=== PATIENT | male | born 1930 | race Caucasian/White ===

== ENCOUNTER 2020-06-08 11:35 | Inpatient (IN) ==
--- NOTE | 2020-06-08 13:13 | Emergency Department Note ---
History of Present Illness General Chief complaint: Fall Time Seen by Provider: 06/08/20 12:58 History of Present Illness This is an 89-year-old male that presents to the emergency department via ambulance with complaints of "fall". Per EMS, patient resides at [facility]. Since Friday per staff at [facility] the patient has had a decline in health. Increased confusion, decreased eating and drinking has been noted as well as difficulty with ambulation. Today they note that the staff found the patient on the floor. They do note abrasions to the right shoulder, left lobo, right hip and top of head. Patient presently denies any chest pain or shortness of breath. Patient is aware that he is at [facility] and knows his date of and is able to spell his last name but does not know today's date. Van jackson denies any other complaints. He believes that he brought his here. Additional history was obtained from KLAUS Singh at [facility]. She notes that the patient on Friday was found to be holding himself up by a railing in the bathroom as it was believed that he almost fell. This happened x2. Did believe that he was trying to hold onto rail for about 15 to 20 minutes when he was found. Following day, patient was on the floor and notes that he was trying to put on his pants and fell. Since that time there has been decreased cognitive status, decreased ability to ambulate with his walker, decreased amount of p.o. intake and overall feeling weak. He developed a fever on Friday @ 101.3 F via the ear. Temperature yesterday was 100.8 F. Covid testing pending & Urine test pending from [facility]. They note that this is very unusual for him as he normally is quite well at baseline. Additional history was obtained by his daughter, Tim. I spoke with her via phone. They note that the patient has not signed a DNR and at this point believes that they would like everything done/patient would like everything done to try to keep him alive. She verified history obtained by [facility] and notes that he seemed quite fine this past Friday but seems to have quite the decline since that time. Home Medications Medication Instructions Recorded Confirmed Type celecoxib 100 mg capsule 100 mg PO QAM cap 03/09/19 06/08/20 History cholecalciferol (vitamin D3) 10 400 units PO QAM tab 04/26/19 06/08/20 History mcg (400 unit) tablet oxycodone-acetaminophen 5 mg-325 1 tab PO Q4H PRN #120 tab 05/17/20 06/08/20 Rx mg tablet gabapentin 100 mg PO TID 06/08/20 06/08/20 History Allergies Allergy/AdvReac Type Severity Reaction Status Date / Time bacitracin Allergy Mild RASH Verified 06/08/20 13:56 neomycin Allergy Mild RASH Verified 06/08/20 13:56 polymyxin B Allergy Mild RASH Verified 06/08/20 13:56 procaine Allergy Unknown started Verified 06/08/20 13:56 shaking after dose of novocain for hemorrhoidectomy Past Med/Surg History Medical History Allergic rhinitis Hyperglycemia Malignant melanoma of skin Nontoxic multinodular goiter Peripheral neuropathy Spinal stenosis Social History Smoking Status: Unknown if ever smoked Hx Alcohol Use: No Hx Substance Use: No Preferred Language: Lithuanian Communication Ability: Impaired Communication Ability Comment: hx of dementia Beliefs That Will Affect Care: None Current Living Situation: Correction Feels Safe at Home: Yes Safety Concerns: Feels Safe At This Time Assistive Devices: Oxygen - Continuous Review of Systems A total of 10 systems reviewed and were otherwise negative Physical Exam Vital Signs Vital Signs - 24 hr 06/08/20 11:40 06/08/20 11:57 06/08/20 12:00 Temperature Temperature Source Pulse Rate 114 H 93 H 90 Pulse Rate [Apical] Pulse Rate from SpO2 Sensor 97 H 93 H 93 H Respiratory Rate 15 19 16 Respiratory Effort / Characteristics Respiratory Depth Respiratory Pattern Blood Pressure 133/79 132/71 Blood Pressure [Right Arm] Blood Pressure Mean 83 90 Blood Pressure Mean [Right Arm] Pulse Oximetry 96 93 Oxygen Delivery Method Oxygen Flow Rate Sepsis Recent Fever Within 48 Hours Sepsis New/Unexplained Change in Mental Status Sepsis Action Taken by Nursing 06/08/20 12:02 06/08/20 12:30 06/08/20 13:00 Temperature 37.3 C Temperature Source Rectal Pulse Rate 93 H 96 H 81 Pulse Rate [Apical] 93 H Pulse Rate from SpO2 Sensor 96 H Respiratory Rate 20 20 15 Respiratory Effort / Characteristics Non-Labored Spontaneous Respiratory Depth Normal Respiratory Pattern Regular Blood Pressure 133/79 130/75 133/95 Blood Pressure [Right Arm] 133/79 Blood Pressure Mean 97 83 110 Blood Pressure Mean [Right Arm] 97 Pulse Oximetry 94 96 Oxygen Delivery Method Room Air Oxygen Flow Rate Sepsis Recent Fever Within 48 Hours No Sepsis New/Unexplained Change in Mental Status Yes Sepsis Action Taken by Nursing No Action Required 06/08/20 13:30 06/08/20 14:00 06/08/20 15:22 Temperature Temperature Source Pulse Rate 88 106 H Pulse Rate [Apical] Pulse Rate from SpO2 Sensor 109 H Respiratory Rate 20 22 Respiratory Effort / Characteristics Respiratory Depth Respiratory Pattern Blood Pressure 134/72 136/89 Blood Pressure [Right Arm] Blood Pressure Mean 108 107 Blood Pressure Mean [Right Arm] Pulse Oximetry 94 90 Oxygen Delivery Method Room Air Oxygen Flow Rate Sepsis Recent Fever Within 48 Hours Sepsis New/Unexplained Change in Mental Status Sepsis Action Taken by Nursing 06/08/20 15:34 06/08/20 17:00 Temperature Temperature Source Pulse Rate 109 H Pulse Rate [Apical] 90 Pulse Rate from SpO2 Sensor Respiratory Rate 18 18 Respiratory Effort / Characteristics Respiratory Depth Respiratory Pattern Blood Pressure 176/102 H Blood Pressure [Right Arm] 138/96 Blood Pressure Mean 153 Blood Pressure Mean [Right Arm] 110 Pulse Oximetry 95 100 Oxygen Delivery Method Nasal Cannula Room Air Oxygen Flow Rate 2 Sepsis Recent Fever Within 48 Hours Sepsis New/Unexplained Change in Mental Status Sepsis Action Taken by Nursing VITAL SIGNS - Vital signs and nursing notes were reviewed. Stable and afebrile. GENERAL -89-year-old male appearing his stated age who is in no acute distress. Communicates well with provider and answers questions appropriately. Patient appears overall mildly dehydrated. SKIN -there is evidence of mild contusion formation to the right anterior shoulder without break in the integument or deformity. HEAD - NC/AT. EYES - PERRL with EOMI bilaterally. Sclera anicteric. EARS - No deformities of external structures noted on gross examination bilaterally. NOSE - Midline and without cyanosis. No epistaxis or purulent drainage noted. Septum midline without deviation or septal hematoma noted. MOUTH/OROPHARYNX - Without perioral cyanosis. Buccal mucosa pink and moist and without leukoplakia. Tongue midline with equal elevation of palate bilaterally. No tonsillar hypertrophy, erythema, or exudates noted. Fair dentition noted. Oral mucosa appears somewhat dry. NECK - Neck with FROM. No nuchal rigidity. LUNGS - Chest wall symmetric without accessory muscle use, intercostals retractions, or central cyanosis. Normal vesicular breath sounds CTA B/L. No wheezes, rales, or rhonchi appreciated. CARDIAC -irregular RRR with S1/S2. No loud murmur, rubs, or gallops appreciated. ABDOMEN - Abdominal contour normal without pulsations or visible masses. BS normoactive all four quadrants. No tenderness, palpable masses, hepato splenomegaly, or ascites noted. EXTREMITIES - No clubbing or peripheral cyanosis. No pretibial edema present. +5/5 strength noted in UE/LE bilaterally. NEUROLOGIC - Cranial nerves II through XII grossly intact. PSYCH - A&Ox2 and cooperates fully with examiner. He is alert and oriented to person, place but not time. Pt is very pleasant and interacts well with examiner. Course Administered Medications Ceftriaxone Sodium 1,000 mg/ (Dextrose) 50 mls @ 100 mls/hr IV DAILY@1400 [facility] Stop: 06/15/20 14:29 Last Infusion: 06/10/20 13:34 Dose: 0 mls/hr Documented by: [id number] Admin: 06/10/20 12:58 Dose: 100 mls/hr Documented by: [id number] Sodium Chloride (Nss 1000ml) 1,000 mls @ 80 mls/hr IV .[id number] [facility] Stop: 07/09/20 14:14 Last Admin: 06/10/20 15:06 Dose: 80 mls/hr Documented by: [id number] Infusion: 06/10/20 15:06 Dose: 80 mls/hr Documented by: [id number] Admin: 06/10/20 02:40 Dose: 80 mls/hr Documented by: [id number] Infusion: 06/10/20 02:38 Dose: 80 mls/hr Documented by: [id number] Infusion: 06/09/20 20:50 Dose: 80 mls/hr Documented by: [id number] Admin: 06/09/20 14:07 Dose: 80 mls/hr Documented by: [id number] Heparin Sodium/Dextrose (Heparin Sodium/Dextrose) 25,000 units in 500 mls @ 0 mls/hr IV .Q0M [facility]; Protocol Stop: 07/09/20 21:14 Last Titration: 06/10/20 19:07 Dose: 400 units/hr, 8 mls/hr Documented by: [id number] Cosigned by: [id number] Admin: 06/10/20 14:30 Dose: 400 units/hr, 8 mls/hr Documented by: [id number] Cosigned by: [id number] Admin: 06/09/20 21:43 Dose: Not Given Documented by: [id number] Fluconazole (Diflucan) 100 mg in 50 mls @ 100 mls/hr IV Q24H [facility]; Protocol Stop: 06/20/20 16:59 Last Infusion: 06/10/20 18:36 Dose: 0 mls/hr Documented by: [id number] Admin: 06/10/20 17:22 Dose: 100 mls/hr Documented by: [id number] Metoprolol Tartrate (Metoprolol Tartrate 1 Mg/Ml Vial) 5 mg IV Q4 [facility] Stop: 07/10/20 19:59 Last Admin: 06/10/20 23:13 Dose: 5 mg Documented by: [id number] Admin: 06/10/20 19:49 Dose: 5 mg Documented by: [id number] Nystatin (Nystatin Susp 500,000 U/5 Ml Udc) 5 ml PO QID [facility] Stop: 06/20/20 12:59 Last Admin: 06/10/20 21:00 Dose: 5 ml Documented by: [id number] Admin: 06/10/20 17:22 Dose: 5 ml Documented by: [id number] Admin: 06/10/20 12:58 Dose: 5 ml Documented by: [id number] Sodium Chloride (Sodium Chloride 0.9% 10ml Flush) 30 ml IV Q24H [facility] Stop: 06/12/20 21:01 Last Admin: 06/10/20 21:20 Dose: 30 ml Documented by: [id number] Admin: 06/09/20 20:50 Dose: 30 ml Documented by: [id number] Admin: 06/08/20 21:40 Dose: 30 ml Documented by: [id number] Discontinued Medications Apixaban (Apixaban 5 Mg Tablet) 5 mg PO BID [facility] Stop: 07/09/20 20:59 Last Admin: 06/09/20 20:49 Dose: Not Given Documented by: [id number] Dexamethasone (Dexamethasone Sod Inj 4 Mg/Ml Vial) 6 mg IV NOW STA Stop: 06/08/20 17:18 Last Admin: 06/08/20 18:45 Dose: 6 mg Documented by: [id number] Gabapentin (Gabapentin 100 Mg Cap) 100 mg PO TID@0600,1200,2000 [facility] Stop: 07/08/20 21:29 Last Admin: 06/09/20 21:18 Dose: Not Given Documented by: [id number] Admin: 06/09/20 12:12 Dose: 100 mg Documented by: [id number] Admin: 06/09/20 05:49 Dose: 100 mg Documented by: [id number] Admin: 06/08/20 22:59 Dose: Not Given Documented by: [id number] Heparin Sodium/Dextrose (Heparin Iv Standard *No* Bolus) 1 ea IV Q30M [facility]; Protocol Stop: 07/08/20 18:10 Last Admin: 06/09/20 00:44 Dose: Not Given Documented by: [id number] Heparin Sodium/Dextrose (Heparin 31185 Unit/500 Ml D5w) Confirm Administered Dose 25,000 units IV .STK-MED ONE Stop: 06/08/20 19:17 Last Admin: 06/08/20 20:29 Dose: Not Given Documented by: [id number] Heparin Sodium/Dextrose (Heparin Iv Standard *No* Bolus) 1 ea IV Q15M [facility]; Protocol Stop: 06/09/20 22:31 Last Admin: 06/10/20 07:12 Dose: Not Given Documented by: [id number] Admin: 06/10/20 07:12 Dose: Not Given Documented by: [id number] Sodium Chloride (Nss 1000ml) 1,000 mls @ 125 mls/hr IV .Q8H [facility] Stop: 07/08/20 13:14 Last Admin: 06/09/20 13:49 Dose: Not Given Documented by: [id number] Infusion: 06/09/20 13:49 Dose: 0 mls/hr Documented by: [id number] Admin: 06/09/20 05:49 Dose: 125 mls/hr Documented by: [id number] Infusion: 06/09/20 05:49 Dose: 125 mls/hr Documented by: [id number] Admin: 06/08/20 22:59 Dose: 125 mls/hr Documented by: [id number] Infusion: 06/08/20 21:40 Dose: 125 mls/hr Documented by: [id number] Admin: 06/08/20 13:40 Dose: 125 mls/hr Documented by: [id number] Remdesivir 200 mg/ Sodium (Chloride) 250 mls @ 125 mls/hr IV TODAY@1800 [facility]; Protocol Stop: 06/08/20 19:59 Last Infusion: 06/09/20 00:35 Dose: 0 mls/hr Documented by: [id number] Admin: 06/08/20 18:45 Dose: 125 mls/hr Documented by: [id number] Heparin Sodium/Dextrose (Heparin Sodium/Dextrose) 25,000 units in 500 mls @ 0 mls/hr IV .Q0M [facility]; Protocol Stop: 06/09/20 21:00 Last Titration: 06/10/20 15:15 Dose: 0 units/hr, 0 mls/hr Documented by: [id number] Cosigned by: [id number] Titration: 06/10/20 13:30 Dose: 0 units/hr, 0 mls/hr Documented by: [id number] Cosigned by: [id number] Titration: 06/10/20 07:06 Dose: 550 units/hr, 11 mls/hr Documented by: [id number] Cosigned by: [id number] Admin: 06/10/20 05:54 Dose: 550 units/hr, 11 mls/hr Documented by: [id number] Cosigned by: [id number] Titration: 06/10/20 05:54 Dose: 550 units/hr, 11 mls/hr Documented by: [id number] Cosigned by: [id number] Titration: 06/10/20 05:53 Dose: 550 units/hr, 11 mls/hr Documented by: [id number] Cosigned by: [id number] Titration: 06/10/20 05:06 Dose: 0 units/hr, 0 mls/hr Documented by: [id number] Cosigned by: [id number] Titration: 06/09/20 22:41 Dose: 700 units/hr, 14 mls/hr Documented by: [id number] Cosigned by: [id number] Titration: 06/09/20 21:41 Dose: 0 units/hr, 0 mls/hr Documented by: [id number] Cosigned by: [id number] Titration: 06/09/20 19:14 Dose: 0 units/hr, 0 mls/hr Documented by: [id number] Cosigned by: [id number] Titration: 06/09/20 11:14 Dose: 850 units/hr, 17 mls/hr Documented by: [id number] Cosigned by: [id number] Titration: 06/09/20 06:56 Dose: 0 units/hr, 0 mls/hr Documented by: [id number] Cosigned by: [id number] Titration: 06/09/20 00:35 Dose: 1,200 units/hr, 24 mls/hr Documented by: [id number] Cosigned by: [id number] Admin: 06/08/20 19:48 Dose: 1,200 units/hr, 24 mls/hr Documented by: [id number] Cosigned by: [id number] Dexamethasone Sodium Phosphate (6 mg/ Syringe) 1.5 mls @ 1 mls/min IV DAILY [facility] Stop: 06/17/20 09:02 Last Admin: 06/09/20 09:53 Dose: 1 mls/min Documented by: [id number] Ioversol (Optiray 320 125ml) 120 ml IV ONCE ONE Stop: 06/08/20 14:46 Last Admin: 06/08/20 14:45 Dose: 120 ml Documented by: [id number] Metoprolol Tartrate (Metoprolol Tartrate 25 Mg Tab) 25 mg PO TID [facility] Stop: 07/09/20 13:59 Last Admin: 06/10/20 09:51 Dose: 25 mg Documented by: [id number] Admin: 06/09/20 20:49 Dose: Not Given Documented by: [id number] Admin: 06/09/20 14:42 Dose: 25 mg Documented by: [id number] Metoprolol Tartrate (Metoprolol Tartrate 1 Mg/Ml Vial) 5 mg IV Q6 [facility] Stop: 07/10/20 11:59 Last Admin: 06/10/20 12:59 Dose: 5 mg Documented by: [id number] Miscellaneous (Stop Order) 1 ea N/A ONE ONE Stop: 06/09/20 21:01 Last Admin: 06/09/20 21:42 Dose: Not Given Documented by: [id number] Sodium Chloride (Sodium Chloride 0.9% 10ml Flush) 30 ml IV TODAY@1800 [facility] Stop: 06/08/20 18:01 Last Admin: 06/08/20 21:46 Dose: 30 ml Documented by: [id number] Vitamin D (Cholecalciferol 400 Units 10 Mcg Tab) 400 units PO QAM [facility] Stop: 07/09/20 08:59 Last Admin: 06/09/20 09:53 Dose: 400 units Documented by: [id number] Medical Decision Making Laboratory Data Result diagrams: 06/10/20 12:42 06/10/20 12:42 Lab Results 06/08/20 06/08/20 06/08/20 Range/Units 11:55 11:55 11:55 WBC 10.54 (4.8-10.8) K/uL RBC 4.19 L (4.7-6.1) M/uL Hgb 13.2 L (14.0-18.0) g/dL Hct 39.3 L (42-52) % MCV 93.8 (80-100) fL MCH 31.5 (25-34) pg MCHC 33.6 (32-36) g/dL RDW Std Deviation 47.9 H (36.4-46.3) fL RDW Coeff of Alvarez 13.9 (11.5-14.5) % Plt Count 250 (130-400) K/uL MPV 11.3 H (7.4-10.4) fL Immature Gran % (Auto) 0.3 % Neut % (Auto) 90.2 % Lymph % (Auto) 3.1 % Tillman % (Auto) 6.4 % Eos % (Auto) 0.0 % Baso % (Auto) 0.0 % Neut # (Auto) 9.51 H (1.4-6.5) K/uL Lymph # (Auto) 0.33 L (1.2-3.4) K/uL Tillman # (Auto) 0.67 H (0.11-0.59) K/uL Eos # (Auto) 0.00 (0-0.5) K/uL Baso # (Auto) 0.00 (0-0.2) K/uL Immature Gran # (Auto) 0.03 H (0.00-0.02) K/uL D-Dimer (0-500) ug/L FEU Sodium 139 (136-145) mmol/L Potassium 3.8 (3.5-5.1) mmol/L Chloride 105 (98-107) mmol/L Carbon Dioxide 25 (21-32) mmol/L Anion Gap 9.0 (3-11) BUN 30 H (7-18) mg/dl Creatinine 1.14 (0.6-1.4) mg/dl Est Cr Clr Drug Dosing 41.1 ml/min Est GFR ( Amer) 65.7 Est GFR (Non-Af Amer) 56.7 BUN/Creatinine Ratio 26.7 H (10-20) Glucose 190 H (70-99) mg/dl Calcium 9.1 (8.5-10.1) mg/dl Magnesium 1.9 (1.8-2.4) mg/dl Total Bilirubin 0.6 (0.2-1) mg/dl AST 151 H (15-37) U/L ALT 74 (12-78) U/L Alkaline Phosphatase 83 (45-117) U/L Lactate Dehydrogenase (87-241) U/L Total Creatine Kinase 1218 H (39-308) U/L Troponin I 1.740 H* (0-0.045) ng/ml C-Reactive Protein (0-0.29) mg/dl Total Protein 7.5 (6.4-8.2) gm/dl Albumin 3.1 L (3.4-5.0) gm/dl Globulin 4.4 H (2.5-4.0) gm/dl Albumin/Globulin Ratio 0.7 L (0.9-2) Procalcitonin 0.11 (0-0.5) ng/ml COVID-19 Eval Order SARS-CoV-2, RNA, NAAT (NEGATIVE) Blood Type Antibody Screen 06/08/20 06/08/20 06/08/20 Range/Units 13:35 13:35 16:25 WBC (4.8-10.8) K/uL RBC (4.7-6.1) M/uL Hgb (14.0-18.0) g/dL Hct (42-52) % MCV (80-100) fL MCH (25-34) pg MCHC (32-36) g/dL RDW Std Deviation (36.4-46.3) fL RDW Coeff of Alvarez (11.5-14.5) % Plt Count (130-400) K/uL MPV (7.4-10.4) fL Immature Gran % (Auto) % Neut % (Auto) % Lymph % (Auto) % Tillman % (Auto) % Eos % (Auto) % Baso % (Auto) % Neut # (Auto) (1.4-6.5) K/uL Lymph # (Auto) (1.2-3.4) K/uL Tillman # (Auto) (0.11-0.59) K/uL Eos # (Auto) (0-0.5) K/uL Baso # (Auto) (0-0.2) K/uL Immature Gran # (Auto) (0.00-0.02) K/uL D-Dimer (0-500) ug/L FEU Sodium (136-145) mmol/L Potassium (3.5-5.1) mmol/L Chloride (98-107) mmol/L Carbon Dioxide (21-32) mmol/L Anion Gap (3-11) BUN (7-18) mg/dl Creatinine (0.6-1.4) mg/dl Est Cr Clr Drug Dosing ml/min Est GFR ( Amer) Est GFR (Non-Af Amer) BUN/Creatinine Ratio (10-20) Glucose (70-99) mg/dl Calcium (8.5-10.1) mg/dl Magnesium (1.8-2.4) mg/dl Total Bilirubin (0.2-1) mg/dl AST (15-37) U/L ALT (12-78) U/L Alkaline Phosphatase (45-117) U/L Lactate Dehydrogenase (87-241) U/L Total Creatine Kinase (39-308) U/L Troponin I (0-0.045) ng/ml C-Reactive Protein (0-0.29) mg/dl Total Protein (6.4-8.2) gm/dl Albumin (3.4-5.0) gm/dl Globulin (2.5-4.0) gm/dl Albumin/Globulin Ratio (0.9-2) Procalcitonin (0-0.5) ng/ml COVID-19 Eval Order Covid19 [facility] SARS-CoV-2, RNA, NAAT POSITIVE A* (NEGATIVE) Blood Type A Negative Antibody Screen NEGATIVE 06/08/20 06/08/20 06/08/20 Range/Units 16:25 16:25 16:25 WBC (4.8-10.8) K/uL RBC (4.7-6.1) M/uL Hgb (14.0-18.0) g/dL Hct (42-52) % MCV (80-100) fL MCH (25-34) pg MCHC (32-36) g/dL RDW Std Deviation (36.4-46.3) fL RDW Coeff of Alvarez (11.5-14.5) % Plt Count (130-400) K/uL MPV (7.4-10.4) fL Immature Gran % (Auto) % Neut % (Auto) % Lymph % (Auto) % Tillman % (Auto) % Eos % (Auto) % Baso % (Auto) % Neut # (Auto) (1.4-6.5) K/uL Lymph # (Auto) (1.2-3.4) K/uL Tillman # (Auto) (0.11-0.59) K/uL Eos # (Auto) (0-0.5) K/uL Baso # (Auto) (0-0.2) K/uL Immature Gran # (Auto) (0.00-0.02) K/uL D-Dimer 970 H* (0-500) ug/L FEU Sodium (136-145) mmol/L Potassium (3.5-5.1) mmol/L Chloride (98-107) mmol/L Carbon Dioxide (21-32) mmol/L Anion Gap (3-11) BUN (7-18) mg/dl Creatinine (0.6-1.4) mg/dl Est Cr Clr Drug Dosing ml/min Est GFR ( Amer) Est GFR (Non-Af Amer) BUN/Creatinine Ratio (10-20) Glucose (70-99) mg/dl Calcium (8.5-10.1) mg/dl Magnesium (1.8-2.4) mg/dl Total Bilirubin (0.2-1) mg/dl AST (15-37) U/L ALT (12-78) U/L Alkaline Phosphatase (45-117) U/L Lactate Dehydrogenase 388 H (87-241) U/L Total Creatine Kinase (39-308) U/L Troponin I (0-0.045) ng/ml C-Reactive Protein 5.93 H (0-0.29) mg/dl Total Protein (6.4-8.2) gm/dl Albumin (3.4-5.0) gm/dl Globulin (2.5-4.0) gm/dl Albumin/Globulin Ratio (0.9-2) Procalcitonin (0-0.5) ng/ml COVID-19 Eval Order SARS-CoV-2, RNA, NAAT (NEGATIVE) Blood Type Antibody Screen Imaging Data Radiologist's Impression: XR chest 1V portable HISTORY: 89 years-old Male weakness acute weakness COMPARISON: None TECHNIQUE: Portable AP view of the chest FINDINGS: Cardiac silhouette is mildly enlarged. Calcified plaque of the thoracic aorta. There is no pneumothorax, pleural effusion or overt pulmonary edema. Hyperinflated lungs with possible emphysema. Subtle ill-defined bibasilar opacities. Degenerative changes of the shoulders and spine. IMPRESSION: Subtle ill-defined bibasilar opacities are suspicious for pneumonitis. ACT 112: Negative or not required by law. The above report was generated using voice recognition software. It may contain grammatical, syntax or spelling errors. Electronically signed by: Fabiano Ramírez M.D. 06/08/2020 2:[address] head/brain wo con CLINICAL HISTORY: 89 years-old Male with ?fall, increased confusion. Acute head injury status post fall TECHNIQUE: Multiple axial CT images of the head were obtained without contrast. A dose lowering technique was utilized adhering to the principles of ALARA. COMPARISON: CT cervical spine of same day FINDINGS: No acute intracranial hemorrhage, midline shift, intracranial mass, hydrocephalus, territorial ischemia or abnormal extra-axial collection. Age- related involutional changes with vacuum ventriculomegaly. Patchy white matter hypodensities suggest chronic microvascular ischemic disease. Cerebral vascular calcifications. The calvarium is intact. Orbits appear unremarkable. Streak artifact from dental amalgam hardware. The paranasal sinuses, mastoid air cells, and middle ear cavities are clear. IMPRESSION: No acute intracranial abnormality or calvarial fracture. ACT 112: Negative or not required by law. The above report was generated using voice recognition software. It may contain grammatical, syntax or spelling errors. Electronically signed by: Fabiano Ramírez M.D. 06/08/2020 2:[address] DOSE: HISTORY: ?fall, increased confusion TECHNIQUE: Multiaxial CT images of the cervical spine were performed and reformatted in the sagittal and coronal plane without the use of contrast. A dose lowering technique was utilized adhering to the principles of ALARA. COMPARISON: None. FINDINGS: No fractures. No subluxation. Prevertebral soft tissues and the C1-C2 interval are intact. No pneumothorax. Mild disc space narrowing at C5-C6. There are fused anterior osteophytes from C6 through the upper thoracic spine. Large anterior osteophytes seen throughout the cervical spine. Moderate to severe fa cet degenerative changes throughout the cervical spine most pronounced on the left. There is moderate to severe central canal narrowing at the C1-C2 level due to soft tissue prominence posterior to the odontoid. The central canal at this level measures approximately 6 mm in diameter. IMPRESSION: 1. No fractures within the cervical spine. 2. Degenerative changes as described above. 3. Moderate to severe central canal narrowing at the C1-C2 level due to soft tissue prominence posterior to the odontoid. This is likely chronic. ACT 112: Negative or not required by law. Electronically signed by: Garcia Jeong M.D. 06/08/2020 2:[address] ANGIOGRAPHY OF THE CHEST, PULMONARY EMBOLUS PROTOCOL CLINICAL HISTORY: Troponin elevation, fever, ams, falls COMPARISON STUDY: Chest radiograph performed earlier today. TECHNIQUE: Following IV administration of 120 mL of Optiray-320, helical axial images of the chest were obtained utilizing the pulmonary embolus protocol. Maximal intensity projections and sagittal and coronal reformats were viewed on an independent 3D workstation. IV contrast was administered without complication. Automated exposure control was utilized for the study. A dose lowering technique was utilized adhering to the principles of ALARA. CT DOSE: 1821.96 mGy.cm FINDINGS: No pulmonary emboli are identified although the lower lobe segmental and subsegmental pulmonary arteries are suboptimally assessed on this examination. Heart is mildly enlarged. No pericardial effusion. No pneumothorax is noted. There is a possible trace right pleural effusion. Note is made of moderate multifocal left lower lobe airspace opacities. There are scattered additional airspace opacities within the right upper, right middle and right lower lobes. No cavitation is present. There is no thoracic lymphadenopathy. There is no evidence for traumatic injury to the thoracic aorta. No acute rib or thoracic spine fracture is noted. Severe degenerative changes of both gle nohumeral joints are incidentally noted. IMPRESSION: 1. No pulmonary emboli identified although segmental and subsegmental pulmonary arteries within the lower lobes suboptimally assessed. 2. Multifocal airspace opacities, most pronounced within the left lower lobe. The findings are consistent with an infectious process. 3. No acute traumatic findings within the chest. ACT 112: Negative or not required by law. Electronically signed by: yTrone Ríos M.D. 06/08/2020 2:[address] abd pelvis IV con only CLINICAL HISTORY: Troponin elevation, fever, ams, falls FEVER, TRAUMA. COMPARISON STUDY: None. TECHNIQUE: The patient was scanned in a dynamic helical fashion during intrav enous administration of 120 cc of Optiray 320 A dose lowering technique was utilized adhering to the principles of ALARA. CT DOSE: FINDINGS: Lower chest: There are right middle lobe and left lower lobe patchy airspace opacities consistent with a multifocal pneumonia. Correlation with Covid 19 t esting is recommended. Liver: The contrast-enhanced liver is normal in size, contour, and attenuation. There is no intrahepatic biliary ductal dilatation. The hepatic veins and portal veins are patent. Gallbladder: Unremarkable. Spleen: Normal in size and attenuation. Pancreas: There is pancreatic atrophy. No focal masses are visualized. Adrenal glands: Unremarkable. Kidneys: There is symmetric renal cortical enhancement. The kidneys are normal in size without hydronephrosis. Bowel: There are no transition zones to indicate bowel obstruction. There is no evidence of acute diverticulitis. There is no evidence of acute appendicitis. There is borderline wall thickening of the ascending colon Peritoneum: There is no intraperitoneal free air or abdominal ascites. Vasculature: The abdominal aorta is normal in course and caliber. Adenopathy: None. Pelvic viscera: There is prostatomegaly. Skeletal structures: Arthritic changes are present within the hip. There are arthritic changes present within the spine. There are postsurgical changes of prior posterior lumbar laminectomies. There is ankylosis of the dorsal spine. IMPRESSION: 1. No evidence of acute intra-abdominal or pelvic injury 2. Bilateral pulmonary airspace opacities suspicious for multifocal pneumonia 3. No evidence of bowel obstruction. No evidence of free air. No acute inflammatory changes 4. Prostatomegaly ACT 112: Negative or not required by law. Electronically signed by: Maury Wilhelm M.D. 06/08/2020 3:05 PM [facility] Narrative Patient was seen and evaluated as above in room A4. Review was performed of nursing notes and vital signs. I did review pertinent previous visits and patient history. After obtaining a thorough history and physical examination the above work up was performed. Patient presents to us today via ambulance over concerns of a fall and decline in physical and mental status over the past few days. He has also had a fever. He is currently being seen during the COVID-19 pandemic. On arrival he is alert and oriented to person, place but not time. Labs reveal no leukocytosis. Mild anemia which is stable. Glucose 190. T roponin I 0.740. He denies chest pain. Total creatinine kinase 1218. Covid test positive. Patient denies any complaints at this time. There is a mild contusion to the right anterior shoulder. Otherwise he looks well. Given the troponin elevation with presentation CT scan head and C-spine were obtained given reported trauma but also chest, abdomen and pelvis were obtained given the fever and falls. Results of this as above. Most concerning are the findings of the chest that revealed multiple airspace opacities, most pronounced in the left lower lobe. In the setting of positive Covid noting the current pandemic this is likely the etiology. I do believe that further evaluation and management in the inpatient setting is warranted. He was gently hydrated with IV fluids here. Case discussed with the attending physician as well as the hospitalist. Please refer to further documentation regarding his stay. I did update the patient's contact listed in the [employer] system, [employer], of the positive Covid status and plan to admit the patient for further evaluation and management. EKG reveals what may be an underlying atrial fibrillation with poor baseline. There are ST depressions noted. Patient denies chest pain at this time. Troponin elevated. This EKG has changed compared to previous. Patient was seen during the COVID-19 pandemic during a period of high volume and acuity. An order was placed for continuous cardiac monitoring. The monitor shows a rate of 109 with sinus tachycardic rhythm. GCS: 15 In the evaluation and treatment of this patient the following differential diagnoses were entertained: TIA, acute intracranial hemorrhage, IN, PE, pericarditis, costochondritis, myocarditis, COVID-19, UTI, dehydration, among others. Impression & Plan COVID-19, Elevated troponin, Recurrent falls Discharge Plan Visit Data Chief Complaint: Fall ED Provider: Navi Valverde ED Midlevel Provider: Gilmer Guerra Discharge Problem: COVID-19, Elevated troponin, Recurrent falls Patient Disposition: Admitted As Inpatient Condition: Fair Discharge Instructions Interventions: ED Discharge Assessment Last Done: 06/08/20 21:30 Addendum (Blank) Addendum June 10, 2020 23:58 HPI: 89 y/o gentleman presents from [facility] with generalized weakness, confusion, and fevers. PE: AF, HR 100s, acute on chronically ill appearing but in NAD NC/AT Tachycardic rate, irregular rhythm. Diminished at bases otherwise clear. Abd soft NT/ND Ext: no edema, erythema Neuro: Alert to self and place but with mild confusion to situation. No focal deficits. AP: Covid19 positive. CTA chest negative for PE but with multifocal opacities. Troponin 1.7, suspect demand. O2 saturation down to 93% on RA. High risk. Admit. I reviewed the patient's past medical history, medications, and visit nursing notes. I discussed the case with the physician metal forger's assistant, examined the patient, and agree with the findings and plan as documented in PAC Charlie's note.
[2020-06-08 13:18] LABS: Hematocrit (blood only) 39.3 % (42-52); Hemoglobin 13.2 g/dL (14.0-18.0); Immature Granulocytes # (auto) 0.03 K/uL (0.00-0.02); Immature Granulocytes % (auto) 0.3 %; Lymphocytes # (auto) 0.33 K/uL (1.2-3.4); Lymphocytes % (auto) 3.1 %; Mean Corpuscular Hemoglobin 31.5 pg (25-34); Mean Corpuscular Hgb Conc 33.6 g/dL (32-36); Mean Corpuscular Volume 93.8 fL (80-100); Mean Platelet Volume 11.3 fL (7.4-10.4); Monocytes # (auto) 0.67 K/uL (0.11-0.59); Monocytes % (auto) 6.4 %; Neutrophils # (auto) 9.51 K/uL (1.4-6.5); Neutrophils % (auto) 90.2 %; Platelet Count 250 K/uL (130-400); RDW Coefficient of Variation 13.9 % (11.5-14.5); RDW Standard Deviation 47.9 fL (36.4-46.3); Red Blood Count 4.19 M/uL (4.7-6.1); White Blood Count 10.54 K/uL (4.8-10.8)
[2020-06-08 13:26] LABS: Albumin Level 3.1 gm/dl (3.4-5.0); BUN Creatinine Ratio 26.7 (10-20); Calcium 9.1 mg/dl (8.5-10.1); Creatinine Clr Calc Pharmacy 41.1 ml/min; Est GFR (African American) 65.7; Est GFR (Non-African American) 56.7; Magnesium 1.9 mg/dl (1.8-2.4); Potassium 3.8 mmol/L (3.5-5.1)
[2020-06-08] MEDS: SODIUM CHLORIDE 0.9% 1000ML 1,000 ML IV SCH ×2 (13:40→22:59)
[2020-06-08 13:41] LABS: Albumin Globulin Ratio 0.7 (0.9-2); Bilirubin,Total 0.6 mg/dl (0.2-1); Globulin 4.4 gm/dl (2.5-4.0); Total Protein 7.5 gm/dl (6.4-8.2); Troponin I 1.74 ng/ml (0-0.045)
--- NOTE | 2020-06-08 14:16 | XRay Report ---
XR chest 1V portable HISTORY: 89 years-old Male weakness acute weakness COMPARISON: None TECHNIQUE: Portable AP view of the chest FINDINGS: Cardiac silhouette is mildly enlarged. Calcified plaque of the thoracic aorta. There is no pneumothor ax, pleural effusion or overt pulmonary edema. Hyperinflated lungs with possible emphysema. Subtle il l-defined bibasilar opacities. Degenerative changes of the shoulders and spine. IMPRESSION: Subtle ill-defined bibasilar opacities are suspicious for pneumonitis. ACT 112: Negative or not required by law. The above report was generated using voice recognition software. It may contain grammatical, syntax o r spelling errors. Electronically signed by: Fabiano Ramírez M.D. 06/08/2020 2:14 PM
[2020-06-08] MEDS ORDERED: OPTIRAY 320 125ml IV ONE (14:45)
--- NOTE | 2020-06-08 14:56 | CT Scan Report ---
CT head/brain wo con CLINICAL HISTORY: 89 years-old Male with ?fall, increased confusion. Acute head injury status post f all TECHNIQUE: Multiple axial CT images of the head were obtained without contrast. A dose lowering tech nique was utilized adhering to the principles of ALARA. COMPARISON: CT cervical spine of same day FINDINGS: No acute intracranial hemorrhage, midline shift, intracranial mass, hydrocephalus, territorial ischem ia or abnormal extra-axial collection. Age-related involutional changes with vacuum ventriculomegaly. Patchy white matter hypodensities suggest chronic microvascular ischemic disease. Cerebral vascular calcifications. The calvarium is intact. Orbits appear unremarkable. Streak artifact from dental amalgam hardware. Th e paranasal sinuses, mastoid air cells, and middle ear cavities are clear. IMPRESSION: No acute intracranial abnormality or calvarial fracture. ACT 112: Negative or not required by law. The above report was generated using voice recognition software. It may contain grammatical, syntax o r spelling errors. Electronically signed by: Fabiano Ramírez M.D. 06/08/2020 2:54 PM
--- NOTE | 2020-06-08 14:56 | CT Scan Report ---
CT ANGIOGRAPHY OF THE CHEST, PULMONARY EMBOLUS PROTOCOL CLINICAL HISTORY: Troponin elevation, fever, ams, falls COMPARISON STUDY: Chest radiograph performed earlier today. TECHNIQUE: Following IV administration of 120 mL of Optiray-320, helical axial images of the chest we re obtained utilizing the pulmonary embolus protocol. Maximal intensity projections and sagittal and coronal reformats were viewed on an independent 3D workstation. IV contrast was administered withou t complication. Automated exposure control was utilized for the study. A dose lowering technique wa s utilized adhering to the principles of ALARA. CT DOSE: 1821.96 mGy.cm FINDINGS: No pulmonary emboli are identified although the lower lobe segmental and subsegmental pulm onary arteries are suboptimally assessed on this examination. Heart is mildly enlarged. No pericardia l effusion. No pneumothorax is noted. There is a possible trace right pleural effusion. Note is made of moderate multifocal left lower lobe airspace opacities. There are scattered additional airspace op acities within the right upper, right middle and right lower lobes. No cavitation is present. There i s no thoracic lymphadenopathy. There is no evidence for traumatic injury to the thoracic aorta. No ac canelo rib or thoracic spine fracture is noted. Severe degenerative changes of both glenohumeral joints are incidentally noted. IMPRESSION: 1. No pulmonary emboli identified although segmental and subsegmental pulmonary arteries within the l ower lobes suboptimally assessed. 2. Multifocal airspace opacities, most pronounced within the left lower lobe. The findings are consis tent with an infectious process. 3. No acute traumatic findings within the chest. ACT 112: Negative or not required by law. Electronically signed by: Tyrone Ríos M.D. 06/08/2020 2:55 PM
--- NOTE | 2020-06-08 14:57 | CT Scan Report ---
CERVICAL SPINE CT CT DOSE: HISTORY: ?fall, increased confusion TECHNIQUE: Multiaxial CT images of the cervical spine were performed and reformatted in the sagittal and coronal plane without the use of contrast. A dose lowering technique was utilized adhering to e principles of ALARA. COMPARISON: None. FINDINGS: No fractures. No subluxation. Prevertebral soft tissues and the C1-C2 interval are intact. No pneumothorax. Mild disc space narrowing at C5-C6. There are fused anterior osteophytes from C6 thr ough the upper thoracic spine. Large anterior osteophytes seen throughout the cervical spine. Moderat e to severe facet degenerative changes throughout the cervical spine most pronounced on the left. The re is moderate to severe central canal narrowing at the C1-C2 level due to soft tissue prominence pos terior to the odontoid. The central canal at this level measures approximately 6 mm in diameter. IMPRESSION: 1. No fractures within the cervical spine. 2. Degenerative changes as described above. 3. Moderate to severe central canal narrowing at the C1-C2 level due to soft tissue prominence veterinary radiologist ior to the odontoid. This is likely chronic. ACT 112: Negative or not required by law. Electronically signed by: Garcia Jeong M.D. 06/08/2020 2:56 PM
--- NOTE | 2020-06-08 15:06 | CT Scan Report ---
CT abd pelvis IV con only CLINICAL HISTORY: Troponin elevation, fever, ams, falls FEVER, TRAUMA. COMPARISON STUDY: None. TECHNIQUE: The patient was scanned in a dynamic helical fashion during intravenous administration of 120 cc of Optiray 320 A dose lowering technique was utilized adhering to the principles of ALARA. CT DOSE: FINDINGS: Lower chest: There are right middle lobe and left lower lobe patchy airspace opacities consistent wit h a multifocal pneumonia. Correlation with Covid 19 testing is recommended. Liver: The contrast-enhanced liver is normal in size, contour, and attenuation. There is no intrahepa tic biliary ductal dilatation. The hepatic veins and portal veins are patent. Gallbladder: Unremarkable. Spleen: Normal in size and attenuation. Pancreas: There is pancreatic atrophy. No focal masses are visualized. Adrenal glands: Unremarkable. Kidneys: There is symmetric renal cortical enhancement. The kidneys are normal in size without hydron ephrosis. Bowel: There are no transition zones to indicate bowel obstruction. There is no evidence of acute div erticulitis. There is no evidence of acute appendicitis. There is borderline wall thickening of the a scending colon Peritoneum: There is no intraperitoneal free air or abdominal ascites. Vasculature: The abdominal aorta is normal in course and caliber. Adenopathy: None. Pelvic viscera: There is prostatomegaly. Skeletal structures: Arthritic changes are present within the hip. There are arthritic changes presen t within the spine. There are postsurgical changes of prior posterior lumbar laminectomies. There is ankylosis of the dorsal spine. IMPRESSION: 1. No evidence of acute intra-abdominal or pelvic injury 2. Bilateral pulmonary airspace opacities suspicious for multifocal pneumonia 3. No evidence of bowel obstruction. No evidence of free air. No acute inflammatory changes 4. Prostatomegaly ACT 112: Negative or not required by law. Electronically signed by: Maury Wilhelm M.D. 06/08/2020 3:05 PM
--- NOTE | 2020-06-08 16:15 | History & Physical Report ---
Date of Service June 08, 2020 Assessment & Plan (1) COVID-19: Dexamethasone 6 mg IV daily for total course of 10 days Convalescent plasma -blood consent gained from daughter and son as patient was unable to adequately consent to this due to not retaining information regarding risks Start remdesivir IV Isolation airborne/droplet precautions (2) Hypoxia: Aim O2 sats > 90% (3) Atrial fibrillation: New onset Rate controlled without current medication TTE TSH with a.m. labs IV heparin standard drip without bolus for anticoagulation (4) Recurrent falls: Suspect secondary to weakness from COVID-19. PT/OT evals (5) Elevated troponin: No chest pain or shortness of breath to suggest ACS Repeat troponin in a.m. -suspect demand ischemia with new onset atrial fibrillation and COVID-19 (6) DVT prophylaxis: IV heparin as above History of Present Illness Chief Complaint: Fall [facility] is an 89 year old male who lives at [facility] presents to the ER after a fall. History is somewhat limited from the patient due to current confusion. He reports he is here because the staff at [facility] sent him here but is unsure why. He is orientated x3 and aware that his is in the memory unit at [facility] but unable to remember any recent history or information I tell him to consent to blood transfusions. Per [facility]. Mr. Woodard has been progressively worsening ambulatory dysfunction, increased confusion, decreased oral intake for the past 4 days. He has had a number of falls during this time. Fever 101.3 F 4 days ago. He currently has a Covid test pending from the [facility]. No shortness of breath, cough, diarrhea, abdominal pain, chest pain, sore throat, chills. Updated and discussed care with his daughter Tim. She confirms history from [facility] in addition to full CODE STATUS. Allergies Allergy/AdvReac Type Severity Reaction Status Date / Time bacitracin Allergy Mild RASH Verified 06/08/20 13:56 neomycin Allergy Mild RASH Verified 06/08/20 13:56 polymyxin B Allergy Mild RASH Verified 06/08/20 13:56 procaine Allergy Unknown started Verified 06/08/20 13:56 shaking after dose of novocain for hemorrhoidectomy Home Medications Medication Instructions Recorded Confirmed Type celecoxib 100 mg capsule 100 mg PO QAM cap 03/09/19 06/08/20 History cholecalciferol (vitamin D3) 10 400 units PO QAM tab 04/26/19 06/08/20 History mcg (400 unit) tablet oxycodone-acetaminophen 5 mg-325 1 tab PO Q4H PRN #120 tab 05/17/20 06/08/20 Rx mg tablet gabapentin 100 mg PO TID 06/08/20 06/08/20 History Past Med/Surg History Medical History Allergic rhinitis Hyperglycemia Malignant melanoma of skin Nontoxic multinodular goiter Peripheral neuropathy Spinal stenosis Social History Smoking Status: Unknown if ever smoked Hx Alcohol Use: No Hx Substance Use: No Preferred Language: Wolof Communication Ability: Impaired Communication Ability Comment: hx of dementia Beliefs That Will Affect Care: None Current Living Situation: Intermediate Feels Safe at Home: Yes Safety Concerns: Feels Safe At This Time Assistive Devices: None Review of Systems Review of Systems: All systems reviewed & are unremarkable except as noted in HPI & below Physical Exam Constitutional: well developed; + not well nourished and no acute distress Eyes: PERRL, conjunctivae normal, anicteric sclerae ENMT: Ears: no external ear abnormality Nose: no external nose abnormality Mouth: + dry oral mucous membranes Neck: trachea midline Respiratory: + respiratory distress, + retractions, + uses accessory muscles, + cough and able to speak in complete sentences; expiratory phase not prolonged Auscultation: lungs clear to auscultation bilaterally; no rales, no rhonchi and no wheezes Cardiovascular: Rate/Rhythm: + tachycardic and + irregularly irregular Heart Sounds: no murmur Vessels: no JVD Extremities: normal capillary refill; no calf tenderness and no pedal edema Gastrointestinal (Abdomen): normal bowel sounds, soft, nontender, no hepatosplenomegaly Musculoskeletal: no cyanosis or clubbing, extremities motor strength 5/5 Skin: no rashes, warm and dry (No areas of cellulitis) Neurologic: moves all extremities, awake and + confused; no focal motor deficits (No lateralizing deficit) Psychiatric: Orientation: alert, oriented to person and oriented to place; + not oriented to time Genitourinary: no CVA tenderness Results & Data Results & Data ([facility]) Vital Signs (Past 12 Hours) Vital Signs Temp Pulse Pulse Resp BP BP Pulse Ox 06/08/20 15:34 109 H 18 176/102 H 95 06/08/20 15:22 90 06/08/20 14:00 106 H 22 136/89 94 06/08/20 13:30 88 20 134/72 06/08/20 13:00 81 15 133/95 06/08/20 12:30 96 H 20 130/75 96 06/08/20 12:02 37.3 C 93 H 93 H 20 133/79 133/79 94 06/08/20 12:00 90 16 132/71 93 06/08/20 11:57 93 H 19 96 06/08/20 11:40 114 H 15 133/[address] head/brain wo con IMPRESSION: No acute intracranial abnormality or calvarial fracture. CERVICAL SPINE CT IMPRESSION: 1. No fractures within the cervical spine. 2. Degenerative changes as described above. 3. Moderate to severe central canal narrowing at the C1-C2 level due to soft tissue prominence posterior to the odontoid. This is likely chronic. XR chest 1V portable IMPRESSION: Subtle ill-defined bibasilar opacities are suspicious for pneumonitis. CT ANGIOGRAPHY OF THE CHEST, PULMONARY EMBOLUS PROTOCOL IMPRESSION: 1. No pulmonary emboli identified although segmental and subsegmental pulmonary arteries within the lower lobes suboptimally assessed. 2. Multifocal airspace opacities, most pronounced within the left lower lobe. The findings are consistent with an infectious process. 3. No acute traumatic findings within the chest. CT abd pelvis IV con only IMPRESSION: 1. No evidence of acute intra-abdominal or pelvic injury 2. Bilateral pulmonary airspace opacities suspicious for multifocal pneumonia 3. No evidence of bowel obstruction. No evidence of free air. No acute i nflammatory changes 4. Prostatomegaly Medications Administered ER Medications given: None ECG Indication: weakness Rate (beats per minute): 99 Rhythm: atrial fibrillation Findings: + RBBB Comparison ECG Date: from (January 18, 2015) Change: the following changes noted (Atrial fibrillaiton has replaced sinus rhythm) Code Status & VTE Plan Code Status Full VTE Prophylaxis Plan VTE Prophylaxis will be ordered: Yes PG Care Time/CCT Total # of Minutes Spent Total Time Spent with Patient: Total time spent is greater than 50% in coordination of care (as documented) at patient's floor/unit and/or counseling patient: Coding Level of Care Code 21804 Initial Inpt Care Lvl 3 Diagnoses COVID-19 U07.1 Hypoxia R09.02 Atrial fibrillation I48.91 Recurrent falls R29.6 Elevated troponin R77.8 DVT prophylaxis Z29.9
[2020-06-08 17:07] LABS: D Dimer 970 ug/L FEU (0-500)
[2020-06-08] MEDS ORDERED: DEXAMETHASONE SOD INJ 4 MG/ML VIAL IV STA (17:17)
[2020-06-08] MEDS ORDERED: SODIUM CHLORIDE 0.9% 10ML FLUSH IV ONE (18:00)
[2020-06-08] MEDS ORDERED: REMDESIVIR 200 MG in SODIUM CHLORIDE 0.9% 210 ML IV ONE (18:00)
[2020-06-08] MEDS ORDERED: Heparin IV Adult Wt-Based Standard *NO* Bolus Protocol IV SCH (18:11)
[2020-06-08] MEDS ORDERED: HEPARIN 25000 UNIT/500 ML D5W IV ONE (19:16)
[2020-06-08] MEDS: HEPARIN SODIUM/DEXTROSE 25,000 UNITS/500 ML BAG IV SCH (19:48)
[2020-06-08] MEDS ORDERED: SODIUM CHLORIDE 0.9% 10ML FLUSH IV SCH (21:07)
[2020-06-08] MEDS: SODIUM CHLORIDE 0.9% 10ML FLUSH IV SCH (21:40)
[2020-06-08] MEDS: GABAPENTIN 100 MG CAP PO SCH (22:59)
[2020-06-09 02:54] LABS: Hematocrit (blood only) 40.6 % (42-52); Hemoglobin 13.6 g/dL (14.0-18.0); Mean Corpuscular Hemoglobin 31.5 pg (25-34); Mean Corpuscular Hgb Conc 33.5 g/dL (32-36); Mean Platelet Volume 11.3 fL (7.4-10.4); Platelet Count 239 K/uL (130-400); RDW Standard Deviation 48.3 fL (36.4-46.3); Red Blood Count 4.32 M/uL (4.7-6.1); White Blood Count 12.04 K/uL (4.8-10.8)
[2020-06-09 03:20] LABS: BUN Creatinine Ratio 28.5 (10-20); Calcium 8.5 mg/dl (8.5-10.1); Creatinine Clr Calc Pharmacy 47.7 ml/min; Est GFR (African American) 80.9; Est GFR (Non-African American) 69.8; Magnesium 2.2 mg/dl (1.8-2.4); Potassium 4.1 mmol/L (3.5-5.1)
[2020-06-09 03:30] LABS: Troponin I 1.11 ng/ml (0-0.045)
[2020-06-09 05:49] LABS: Appearance Urine Turbid (Clear); Bilirubin Urine Negative (Negative); Blood Urine 1+ (Negative); Color Urine Yellow; Glucose Urine UA Negative (Negative); Ketones Urine 1+ (Negative); Leukocyte Esterase Urine 1+ (Negative); Nitrite Urine Negative (Negative); Urobilinogen Urine Negative (Negative)
[2020-06-09] MEDS: SODIUM CHLORIDE 0.9% 1000ML 1,000 ML IV SCH ×3 (05:49→14:07)
[2020-06-09] MEDS: GABAPENTIN 100 MG CAP PO SCH ×3 (05:49→21:18)
[2020-06-09 05:53] LABS: Protein Urine 2+ (Negative)
[2020-06-09 05:54] LABS: Sulfosalicylic Acid Urine Positive (Negative)
[2020-06-09 05:56] LABS: Bacteria Urine 2+ (Negative); Triple Phosphate Crystal Urine Present (None Prsent)
[2020-06-09 05:58] LABS: Epithelial Cell Urine 20-30 /lpf (0-5); Mucus Urine Present (None Prsent); RBC Urine 0-4 /hpf (0-4); WBC Urine >30 /hpf (0-5)
[2020-06-09 06:51] LABS: Partial Thromboplastin Ratio > 5.0
[2020-06-09 06:52] LABS: Partial Thromboplastin Time > 139.0 Seconds (21.0-31.0)
--- NOTE | 2020-06-09 07:02 | Electrocardiogram Report ---
Test Reason : Blood Pressure : / mmHG Vent. Rate : 099 BPM Atrial Rate : 045 BPM P-R Int : 000 ms QRS Dur : 144 ms QT Int : 396 ms P-R-T Axes : 000 -62 241 degrees QTc Int : 508 ms Atrial fibrillation Right bundle branch block Possible Inferior infarct Left axis deviation Abnormal ECG When compared with ECG of 18-JAN-2015 11:01, Atrial fibrillation has replaced Sinus rhythm Right bundle branch block is now Present Confirmed by Michoacano Olivera ([id number]) on 06/09/2020 7:01:40 AM Referred By: Confirmed By:Michoacano Olivera
[2020-06-09 08:36] LABS: Partial Thromboplastin Ratio > 5.0
[2020-06-09 08:38] LABS: Partial Thromboplastin Time > 139.0 Seconds (21.0-31.0)
[2020-06-09] MEDS ORDERED: CHOLECALCIFEROL 400 UNITS 10 MCG TAB PO SCH (09:00)
[2020-06-09] MEDS ORDERED: DEXAMETHASONE SOD INJ 4 MG/ML VIAL IV SCH (09:00)
[2020-06-09] MEDS ORDERED: dexAMETHasone 6 MG in SYRINGE 0 ML IV SCH (09:00)
[2020-06-09 10:55] LABS: Partial Thromboplastin Ratio 3.4
[2020-06-09 11:00] LABS: Partial Thromboplastin Time 94.3 Seconds (21.0-31.0)
[2020-06-09] MEDS: METOPROLOL TARTRATE 25 MG TAB PO SCH ×2 (14:42→20:49)
--- NOTE | 2020-06-09 16:06 | Hospitalist Progress Note ---
Date of Service June 09, 2020 Assessment & Plan (1) Atrial fibrillation: New onset Rates in low 100's, start on metoprolol 25mg BID TTE pending heparin drip initially for full anticoagulation switch to Eliquis 5mg BID this evening transfer to [facility] to closely monitor rates (2) UTI (urinary tract infection): UA with > 30WBC will start on Rocephin, follow up urine culture (3) Delirium: more confused than baseline certainly could be multifactorial COVID 19, UTI monitor for improvement with treatment and supportive care (4) COVID-19: patient is 94-99% on room air at this time there is no role for dexamethasone, Remdesivir or plasma hold on further treatment certainly if he becomes hypoxic then start treatment remain in COVID unit, close monitoring of pulse oximetry (5) Hypoxia: no hypoxemia today, saturations stable on room air no increased work of breathing (6) Recurrent falls: Suspect secondary to weakness from COVID-19. PT/OT evals he is in personal fpc at baseline, might need short rehab stay prior to discharge back to personal care (7) Elevated troponin: No chest pain or shortness of breath to suggest ACS troponin remains at 1 could be myocarditis from COVID? (8) DVT prophylaxis: Eliquis Admission and Anticipated Discharge Date Admission Date: June 08, 2020 Subjective patient doing okay today, his breathing is stable and he is afebrile having a difficult time eating and taking pills, coughing and choking per RN he is confused, told me he thinks he is at [facility] which is where he lives in personal care I called his children on conference call, Frederick and Tim, they told me he has been getting more confused the past year however he has been able to maintain independence and lives in personal care his is in the dementia unit at [facility] his daughter was concerned about UTI, told her that the UA did look dirty and urine culture pending discussed that his lack of hypoxemia suggested that the COVID pneumonia is mild, no need for specific treatment discussed the afib which is in fact new, discussed metoprolol and Eliquis, they agree their goal is for him to get stronger and see if he can go back to [facility] we discussed the possibility of needing rehab first in the afternoon he was having a difficult time swallowing again, barely able to take metoprolol due to the possible need for IV rate control medications, will have him moved to [facility] if possible Review of Systems Review of Systems: All systems reviewed & are unremarkable except as noted in Subjective Physical Exam Constitutional: well developed, + thin and + frail appearing; no acute distress Neck: trachea midline, no thyromegaly Respiratory: normal respiratory effort, lungs clear to auscultation Cardiovascular: Rate/Rhythm: + tachycardic and + irregularly irregular Heart Sounds: normal S1 and normal S2; no murmur Vessels: no JVD Extremities: normal capillary refill; no edema Gastrointestinal (Abdomen): normal bowel sounds, soft, nontender, no hepatosplenomegaly Musculoskeletal: no cyanosis or clubbing, extremities motor strength 5/5 Skin: no rashes, warm and dry Neurologic: patellar DTR's 2+ bilat, sensation intact and PERRL, EOMI, accommodation nl, no face palsy, no dysarthria Psychiatric: Orientation: alert, oriented to person and cooperative; + not oriented to place and + not oriented to time Lymphatic: no cervical or axillary lymphadenopathy Results & Data Results & Data ([facility]) Vital Signs (Past 12 Hours) Vital Signs Temp Pulse Pulse Resp BP BP Pulse Ox 06/09/20 15:28 36.9 C 156/98 H 06/09/20 11:23 37 C 109 H 16 185/82 H 99 06/09/20 07:20 36.7 C 92 H 16 144/95 H 100 06/09/20 04:18 36.5 C 99 H 18 166/106 H 98 Laboratory Results Laboratory Results - last 24 hr 06/08/20 06/08/20 06/08/20 11:55 16:25 16:25 WBC RBC Hgb Hct MCV MCH MCHC RDW Std Deviation RDW Coeff of Alvarez Plt Count MPV APTT PTT Ratio D-Dimer Sodium Potassium Chloride Carbon Dioxide Anion Gap BUN Creatinine Est Cr Clr Drug Dosing Est GFR ( Amer) Est GFR (Non-Af Amer) BUN/Creatinine Ratio Glucose Calcium Magnesium Lactate Dehydrogenase 388 H Troponin I C-Reactive Protein Procalcitonin 0.11 TSH Urine Color Urine Appearance Urine pH Ur Specific [place] Urine Protein Urine Glucose (UA) Urine Ketones Urine Blood Urine Nitrite Urine Bilirubin Urine Urobilinogen Ur Leukocyte Esterase Urine RBC Urine WBC Ur Epithelial Cells Triple Phos Crystals Urine Bacteria Hyaline Casts Urine Mucus Blood Type A Negative Antibody Screen NEGATIVE 06/08/20 06/08/20 06/09/20 16:25 16:25 02:45 WBC 12.04 H RBC 4.32 L Hgb 13.6 L Hct 40.6 L MCV 94.0 MCH 31.5 MCHC 33.5 RDW Std Deviation 48.3 H RDW Coeff of Avlarez 14.0 Plt Count 239 MPV 11.3 H APTT PTT Ratio D-Dimer 970 H* Sodium Potassium Chloride Carbon Dioxide Anion Gap BUN Creatinine Est Cr Clr Drug Dosing Est GFR ( Amer) Est GFR (Non-Af Amer) BUN/Creatinine Ratio Glucose Calcium Magnesium Lactate Dehydrogenase Troponin I C-Reactive Protein 5.93 H Procalcitonin TSH Urine Color Urine Appearance Urine pH Ur Specific [place] Urine Protein Urine Glucose (UA) Urine Ketones Urine Blood Urine Nitrite Urine Bilirubin Urine Urobilinogen Ur Leukocyte Esterase Urine RBC Urine WBC Ur Epithelial Cells Triple Phos Crystals Urine Bacteria Hyaline Casts Urine Mucus Blood Type Antibody Screen 06/09/20 06/09/20 06/09/20 02:45 02:45 04:15 WBC RBC Hgb Hct MCV MCH MCHC RDW Std Deviation RDW Coeff of Alvarez Plt Count MPV APTT Cancelled PTT Ratio Cancelled D-Dimer Sodium 139 Potassium 4.1 Chloride 105 Carbon Dioxide 29 Anion Gap 5.0 BUN 27 H Creatinine 0.96 Est Cr Clr Drug Dosing 47.7 Est GFR ( Amer) 80.9 Est GFR (Non-Af Amer) 69.8 BUN/Creatinine Ratio 28.5 H Glucose 181 H Calcium 8.5 Magnesium 2.2 Lactate Dehydrogenase Troponin I 1.110 H* C-Reactive Protein Procalcitonin TSH Urine Color Yellow Urine Appearance Turbid A Urine pH 8.0 H Ur Specific [place] 1.020 Urine Protein 2+ H Urine Glucose (UA) Negative Urine Ketones 1+ H Urine Blood 1+ H Urine Nitrite Negative Urine Bilirubin Negative Urine Urobilinogen Negative Ur Leukocyte Esterase 1+ H Urine RBC 0-4 Urine WBC >30 H Ur Epithelial Cells 20-30 H Triple Phos Crystals Present A Urine Bacteria 2+ H Hyaline Casts 5-10 H Urine Mucus Present A Blood Type Antibody Screen 06/09/20 06/09/20 06/09/20 05:34 05:42 07:52 WBC RBC Hgb Hct MCV MCH MCHC RDW Std Deviation RDW Coeff of Alvarez Plt Count MPV APTT > 139.0 H* > 139.0 H* PTT Ratio > 5.0 > 5.0 D-Dimer Sodium Potassium Chloride Carbon Dioxide Anion Gap BUN Creatinine Est Cr Clr Drug Dosing Est GFR ( Amer) Est GFR (Non-Af Amer) BUN/Creatinine Ratio Glucose Calcium Magnesium Lactate Dehydrogenase Troponin I C-Reactive Protein Procalcitonin TSH 0.769 Urine Color Urine Appearance Urine pH Ur Specific [place] Urine Protein Urine Glucose (UA) Urine Ketones Urine Blood Urine Nitrite Urine Bilirubin Urine Urobilinogen Ur Leukocyte Esterase Urine RBC Urine WBC Ur Epithelial Cells Triple Phos Crystals Urine Bacteria Hyaline Casts Urine Mucus Blood Type Antibody Screen 06/09/20 10:11 WBC RBC Hgb Hct MCV MCH MCHC RDW Std Deviation RDW Coeff of Alvarez Plt Count MPV APTT 94.3 H* PTT Ratio 3.4 D-Dimer Sodium Potassium Chloride Carbon Dioxide Anion Gap BUN Creatinine Est Cr Clr Drug Dosing Est GFR ( Amer) Est GFR (Non-Af Amer) BUN/Creatinine Ratio Glucose Calcium Magnesium Lactate Dehydrogenase Troponin I C-Reactive Protein Procalcitonin TSH Urine Color Urine Appearance Urine pH Ur Specific [place] Urine Protein Urine Glucose (UA) Urine Ketones Urine Blood Urine Nitrite Urine Bilirubin Urine Urobilinogen Ur Leukocyte Esterase Urine RBC Urine WBC Ur Epithelial Cells Triple Phos Crystals Urine Bacteria Hyaline Casts Urine Mucus Blood Type Antibody Screen Medications Administered Current Inpatient Medications Apixaban (Apixaban 5 Mg Tablet) 5 mg PO BID [facility] Stop: 07/09/20 20:59 Gabapentin (Gabapentin 100 Mg Cap) 100 mg PO TID@0600,1200,2000 [facility] Stop: 07/08/20 21:29 Last Admin: 06/09/20 12:12 Dose: 100 mg Documented by: Heparin Sodium/Dextrose (Heparin Sodium/Dextrose) 25,000 units in 500 mls @ 17 mls/hr IV .Q24H [facility]; Protocol Stop: 06/09/20 21:00 Last Titration: 06/09/20 11:14 Dose: 850 units/hr, 17 mls/hr Documented by: Ceftriaxone Sodium 1,000 mg/ (Dextrose) 50 mls @ 100 mls/hr IV DAILY@1400 [facility] Stop: 06/15/20 14:29 Sodium Chloride (Nss 1000ml) 1,000 mls @ 80 mls/hr IV .[id number] [facility] Stop: 07/09/20 14:14 Last Admin: 06/09/20 14:07 Dose: 80 mls/hr Documented by: Metoprolol Tartrate (Metoprolol Tartrate 25 Mg Tab) 25 mg PO TID [facility] Stop: 07/09/20 13:59 Last Admin: 06/09/20 14:42 Dose: 25 mg Documented by: Miscellaneous (Stop Order) 1 ea N/A ONE ONE Stop: 06/09/20 21:01 Sodium Chloride (Sodium Chloride 0.9% 10ml Flush) 30 ml IV Q24H [facility] Stop: 06/12/20 21:01 Last Admin: 06/08/20 21:40 Dose: 30 ml Documented by: Vitamin D (Cholecalciferol 400 Units 10 Mcg Tab) 400 units PO QAM [facility] Stop: 07/09/20 08:59 Last Admin: 06/09/20 09:53 Dose: 400 units Documented by: PG Care Time/CCT Total # of Minutes Spent Total Time Spent with Patient: Total time spent is greater than 50% in coordination of care (as documented) at patient's floor/unit and/or counseling patient: Coding Level of Care Code 94838 Subseq Hosp Care Lvl 3 Diagnoses Atrial fibrillation I48.91 UTI (urinary tract infection) N39.0 Delirium R41.0 COVID-19 U07.1 Hypoxia R09.02 Recurrent falls R29.6 Elevated troponin R77.8 DVT prophylaxis Z29.9
[2020-06-09 18:52] LABS: Partial Thromboplastin Ratio > 5.0
[2020-06-09 18:54] LABS: Partial Thromboplastin Time > 139.0 Seconds (21.0-31.0)
[2020-06-09] MEDS ORDERED: REMDESIVIR 100 MG in SODIUM CHLORIDE 0.9% 230 ML IV SCH (20:00)
[2020-06-09] MEDS: SODIUM CHLORIDE 0.9% 10ML FLUSH IV SCH (20:50)
[2020-06-09] MEDS ORDERED: APIXABAN 5 MG TABLET PO SCH (21:00)
[2020-06-09 21:28] LABS: Partial Thromboplastin Ratio 3.5
[2020-06-09 21:33] LABS: Partial Thromboplastin Time 97.9 Seconds (21.0-31.0)
[2020-06-09] MEDS: HEPARIN SODIUM/DEXTROSE 25,000 UNITS/500 ML BAG IV SCH (21:43)
[2020-06-10] MEDS: SODIUM CHLORIDE 0.9% 1000ML 1,000 ML IV SCH ×2 (02:40→15:06)
[2020-06-10 04:27] LABS: Partial Thromboplastin Ratio 3.2
[2020-06-10 04:38] LABS: Partial Thromboplastin Time 88.3 Seconds (21.0-31.0)
[2020-06-10] MEDS: HEPARIN SODIUM/DEXTROSE 25,000 UNITS/500 ML BAG IV SCH ×2 (05:54→14:30)
[2020-06-10] MEDS: Heparin IV Adult Wt-Based Standard *NO* Bolus Protocol IV SCH (07:12)
[2020-06-10] MEDS: METOPROLOL TARTRATE 25 MG TAB PO SCH (09:51)
[2020-06-10] MEDS ORDERED: METOPROLOL TARTRATE 1 MG/ML VIAL IV SCH (12:00)
[2020-06-10 12:52] LABS: Hematocrit (blood only) 40.9 % (42-52); Hemoglobin 13.7 g/dL (14.0-18.0); Mean Corpuscular Hemoglobin 31.4 pg (25-34); Mean Corpuscular Hgb Conc 33.5 g/dL (32-36); Mean Corpuscular Volume 93.8 fL (80-100); Mean Platelet Volume 11.3 fL (7.4-10.4); Platelet Count 257 K/uL (130-400); RDW Coefficient of Variation 14.1 % (11.5-14.5); RDW Standard Deviation 48.5 fL (36.4-46.3); Red Blood Count 4.36 M/uL (4.7-6.1); White Blood Count 18.03 K/uL (4.8-10.8)
[2020-06-10] MEDS: NYSTATIN SUSP 500,000 U/5 ML UDC PO SCH ×3 (12:58→21:00)
[2020-06-10 13:15] LABS: Partial Thromboplastin Ratio 3.1
[2020-06-10 13:23] LABS: Partial Thromboplastin Time 87.4 Seconds (21.0-31.0)
[2020-06-10 13:25] LABS: BUN Creatinine Ratio 38.8 (10-20); Calcium 8.4 mg/dl (8.5-10.1); Creatinine Clr Calc Pharmacy 46.9 ml/min; Est GFR (African American) 79.9; Est GFR (Non-African American) 68.9; Potassium 3.9 mmol/L (3.5-5.1)
[2020-06-10] MEDS ORDERED: cefTRIAXone SODIUM 1,000 MG in DEXTROSE 5% 50 ML IV SCH (14:30)
--- NOTE | 2020-06-10 16:21 | Hospitalist Progress Note ---
Date of Service June 10, 2020 Assessment & Plan (1) Dysphagia: pronounced, aspirated applesauce and ice chips per speech therapist, no pharyngeal movement does have some evidence of thrush and c/o sore throat will treat with Diflucan 100mg IV daily and Nystatin (RN will swab his mouth) (2) Atrial fibrillation: New onset Rates in low 100's, start on metoprolol 25mg BID but he cannot take PO now Lopressor 5mg q4 scheduled heparin drip for full anticoagulation since he cannot take Eliquis (3) UTI (urinary tract infection): possible UTI UA with > 30WBC will start on Rocephin, urine culture with mixed haley continue for now (4) Delirium: more confused than baseline certainly could be multifactorial COVID 19, UTI? monitor for improvement with treatment and supportive care, still confused today (5) COVID-19: patient is 94-99% on room air at this time there is no role for dexamethasone, Remdesivir or plasma hold on further treatment certainly if he becomes hypoxic then start treatment remain in COVID unit, close monitoring of pulse oximetry (6) Hypoxia: no hypoxemia today, saturations stable on room air no increased work of breathing (7) Recurrent falls: Suspect secondary to weakness from COVID-19. PT/OT evals he is in personal fpc at baseline, might need short rehab stay prior to discharge back to personal care (8) Elevated troponin: No chest pain or shortness of breath to suggest ACS troponin remains at 1 could be myocarditis from COVID? (9) DVT prophylaxis: Eliquis Admission and Anticipated Discharge Date Admission Date: June 08, 2020 Subjective patient did really poorly last night when trying to swallow he is aspirating, had speech see him today, he aspirated applesauce and an ice chip strict NPO, change medications to IV where possible some possible thrush on exam of oral cavity, give Diflucan IV I updated his son and daughter over the phone explained the severity of his aspiration, plan to treat thrush and give fluids explained that he is still confused, unsure how long he will have delirium asked them about DNR status and advanced directive he does not have paperwork, they both said that he would want to be level 1 daughter stated that he wants "to be on this planet as long as he can" Review of Systems Review of Systems: Unobtainable due to cognitive status Physical Exam Constitutional: well developed, + thin and + frail appearing; no acute distress Neck: trachea midline, no thyromegaly Respiratory: normal respiratory effort, lungs clear to auscultation Cardiovascular: Rate/Rhythm: + tachycardic and + irregularly irregular Heart Sounds: normal S1 and normal S2; no murmur Vessels: no JVD Extremities: normal capillary refill; no edema Gastrointestinal (Abdomen): normal bowel sounds, soft, nontender, no hepatosplenomegaly Musculoskeletal: no cyanosis or clubbing, extremities motor strength 5/5 Skin: no rashes, warm and dry Neurologic: patellar DTR's 2+ bilat, sensation intact and PERRL, EOMI, accommodation nl, no face palsy, no dysarthria Psychiatric: Orientation: alert, oriented to person and cooperative; + not oriented to place and + not oriented to time Lymphatic: no cervical or axillary lymphadenopathy Results & Data Results & Data ([facility]) Vital Signs (Past 12 Hours) Vital Signs Temp Pulse Pulse Resp BP BP BP 06/10/20 15:32 106 H 06/10/20 15:25 36.6 C 71 19 152/94 H 06/10/20 13:17 36.6 C 88 20 152/97 H 06/10/20 12:59 106 H 152/97 H 06/10/20 09:06 36.7 C 80 20 174/96 H 06/10/20 07:32 112 H Pulse Ox 06/10/20 15:32 06/10/20 15:25 100 06/10/20 13:17 98 06/10/20 12:59 06/10/20 09:06 92 06/10/20 07:32 Laboratory Results Laboratory Results - last 24 hr 06/09/20 06/09/20 06/10/20 17:48 20:55 03:51 WBC RBC Hgb Hct MCV MCH MCHC RDW Std Deviation RDW Coeff of Alvarez Plt Count MPV APTT > 139.0 H* 97.9 H* 88.3 H* PTT Ratio > 5.0 3.5 3.2 Sodium Potassium Chloride Carbon Dioxide Anion Gap BUN Creatinine Est Cr Clr Drug Dosing Est GFR ( Amer) Est GFR (Non-Af Amer) BUN/Creatinine Ratio Glucose Calcium 06/10/20 06/10/20 06/10/20 12:42 12:42 12:42 WBC 18.03 H RBC 4.36 L Hgb 13.7 L Hct 40.9 L MCV 93.8 MCH 31.4 MCHC 33.5 RDW Std Deviation 48.5 H RDW Coeff of Alvarez 14.1 Plt Count 257 MPV 11.3 H APTT 87.4 H* PTT Ratio 3.1 Sodium 143 Potassium 3.9 Chloride 112 H Carbon Dioxide 26 Anion Gap 5.0 BUN 38 H Creatinine 0.97 Est Cr Clr Drug Dosing 46.9 Est GFR ( Amer) 79.9 Est GFR (Non-Af Amer) 68.9 BUN/Creatinine Ratio 38.8 H Glucose 172 H Calcium 8.4 L Medications Administered Current Inpatient Medications Ceftriaxone Sodium 1,000 mg/ (Dextrose) 50 mls @ 100 mls/hr IV DAILY@1400 [facility] Stop: 06/15/20 14:29 Last Infusion: 06/10/20 13:34 Dose: Infused Documented by: Sodium Chloride (Nss 1000ml) 1,000 mls @ 80 mls/hr IV .[id number] [facility] Stop: 07/09/20 14:14 Last Admin: 06/10/20 15:06 Dose: 80 mls/hr Documented by: Heparin Sodium/Dextrose (Heparin Sodium/Dextrose) 25,000 units in 500 mls @ 0 mls/hr IV .Q0M [facility]; Protocol Stop: 07/09/20 21:14 Last Admin: 06/10/20 14:30 Dose: 400 units/hr, 8 mls/hr Documented by: Fluconazole (Diflucan) 100 mg in 50 mls @ 100 mls/hr IV DAILY [facility]; Protocol Stop: 06/20/20 16:29 Metoprolol Tartrate (Metoprolol Tartrate 1 Mg/Ml Vial) 5 mg IV Q6 [facility] Stop: 07/10/20 11:59 Last Admin: 06/10/20 12:59 Dose: 5 mg Documented by: Nystatin (Nystatin Susp 500,000 U/5 Ml Udc) 5 ml PO QID [facility] Stop: 06/20/20 12:59 Last Admin: 06/10/20 12:58 Dose: 5 ml Documented by: Sodium Chloride (Sodium Chloride 0.9% 10ml Flush) 30 ml IV Q24H [facility] Stop: 06/12/20 21:01 Last Admin: 06/09/20 20:50 Dose: 30 ml Documented by: PG Care Time/CCT Total # of Minutes Spent Total Time Spent: 33 Total Time Spent with Patient: Total time spent is greater than 50% in coordination of care (as documented) at patient's floor/unit and/or counseling patient: 15 minutes speaking with son and daughter over the phone 18 minutes on exam, discussing with speech therapy, RN, documentation Coding Level of Care Code 79434 Subseq Hosp Care Lvl 3 Diagnoses Dysphagia R13.10 Atrial fibrillation I48.91 UTI (urinary tract infection) N39.0 Delirium R41.0 COVID-19 U07.1 Hypoxia R09.02 Recurrent falls R29.6 Elevated troponin R77.8 DVT prophylaxis Z29.9
[2020-06-10] MEDS ORDERED: FLUCONAZOLE 100 MG/50 ML BAG IV SCH (17:00)
[2020-06-10] MEDS: METOPROLOL TARTRATE 1 MG/ML VIAL IV SCH ×2 (19:49→23:13)
[2020-06-10] MEDS: SODIUM CHLORIDE 0.9% 10ML FLUSH IV SCH (21:20)
[2020-06-10 21:54] LABS: Partial Thromboplastin Ratio 1.7
[2020-06-10 21:56] LABS: Partial Thromboplastin Time 47.5 Seconds (21.0-31.0)
[2020-06-11] MEDS: SODIUM CHLORIDE 0.9% 1000ML 1,000 ML IV SCH ×2 (03:36→17:07)
[2020-06-11] MEDS: METOPROLOL TARTRATE 1 MG/ML VIAL IV SCH ×5 (04:05→21:33)
[2020-06-11 07:15] LABS: Partial Thromboplastin Ratio 2.2
[2020-06-11 07:22] LABS: Partial Thromboplastin Time 60.3 Seconds (21.0-31.0)
[2020-06-11] MEDS ORDERED: PIPERACILL/TAZOBAC CONSULT ACTIVE PRN (07:48)
[2020-06-11] MEDS ORDERED: PIPERACILLIN/TAZOBACTAM 4.5 GM in DEXTROSE 5% 100 ML IV SCH (08:30)
[2020-06-11] MEDS: NYSTATIN SUSP 500,000 U/5 ML UDC PO SCH (08:51)
[2020-06-11 10:26] LABS: BUN Creatinine Ratio 35.3 (10-20); Calcium 8.2 mg/dl (8.5-10.1); Creatinine Clr Calc Pharmacy 43.7 ml/min; Est GFR (African American) 73.4; Est GFR (Non-African American) 63.4; Potassium 4.3 mmol/L (3.5-5.1)
[2020-06-11 10:30] LABS: Basophils # (auto) 0.01 K/uL (0-0.2); Basophils % (auto) 0.1 %; Hematocrit (blood only) 41.4 % (42-52); Hemoglobin 13.6 g/dL (14.0-18.0); Immature Granulocytes # (auto) 0.11 K/uL (0.00-0.02); Immature Granulocytes % (auto) 0.6 %; Lymphocytes # (auto) 1.09 K/uL (1.2-3.4); Lymphocytes % (auto) 6.2 %; Mean Corpuscular Hemoglobin 30.9 pg (25-34); Mean Corpuscular Hgb Conc 32.9 g/dL (32-36); Mean Corpuscular Volume 94.1 fL (80-100); Mean Platelet Volume 11.5 fL (7.4-10.4); Monocytes # (auto) 1.12 K/uL (0.11-0.59); Monocytes % (auto) 6.4 %; Neutrophils # (auto) 15.16 K/uL (1.4-6.5); Neutrophils % (auto) 86.7 %; Platelet Count 248 K/uL (130-400); RDW Coefficient of Variation 14.2 % (11.5-14.5); RDW Standard Deviation 48.9 fL (36.4-46.3); White Blood Count 17.49 K/uL (4.8-10.8)
[2020-06-11] MEDS: PIPERACILLIN/TAZOBACTAM 3.375 GM in DEXTROSE 5% 100 ML IV SCH ×2 (12:29→21:35)
--- NOTE | 2020-06-11 14:46 | Hospitalist Progress Note ---
Date of Service June 11, 2020 Assessment & Plan (1) Dysphagia: failed swallow evaluation terribly on 06/10, aspirated applesauce and ice chip now he is not protecting airway from saliva unsure etiology, combination of frail state, delirium, possible thrush? discussed with family, want to change him to DNR/DNI would not want trach, PEG if he appears uncomfortable they would want him treated for comfort will continue Diflucan IV as he c/o sore throat on 06/10 unsure if this is actually thrush (2) Delirium: likely COVID delirium at baseline he is [facility] continues with confusion, disorientation could persist for weeks making treatment for other issues nearly impossible (3) Aspiration into airway: LLL infiltrate lays on his left side a lot, weak cough, cannot protect airway change to Zosyn IV with comfort as goal (4) COVID-19: patient is 98% on 2L, could probably be on room air at this time there is no role for dexamethasone, Remdesivir or plasma hold on further treatment with transitioning to comfort (5) Hypoxia: 98% on 2L, likely not requiring oxygen no increased work of breathing (6) Atrial fibrillation: New onset Rates in low 100's, start on metoprolol 25mg BID but he cannot take PO now Lopressor 5mg q4 scheduled heparin drip for full anticoagulation, stop now as moving towards comfort he cannot take rate control or anticoagulation reliably by mouth so could not treat afib going forward outside of the hospital (7) Recurrent falls: Suspect secondary to weakness from COVID-19. PT/OT august he is in personal long term at baseline now he is too weak to get out of bed (8) Elevated troponin: No chest pain or shortness of breath to suggest ACS troponin remains at 1 could be myocarditis from COVID? (9) DVT prophylaxis: stop as family would not want unnecessary discomfort Admission and Anticipated Discharge Date Admission Date: June 08, 2020 Subjective patient doing worse today, he is laying on left side, cannot protect his airway from saliva gurgling sound in back of his throat, very weak cough reviewed imaging on admission, left lower lobe infiltrate, could be explained by aspiration if he laying on his left a lot patient remains confused, not sure where he is right now, very frail and lethargic called his son and daughter to discuss my concerns doubt he will be able to eat or drink safely based on his initial speech/swallow evaluation he will not be able to take medications by mouth for his afib right now he cannot protect airway discussed that options like tracheostomy, PEG would not be appropriate given his age, frail condition they agreed that he would never want those things discussed that their mother is there as well on comfort care they are both seeing it as a "sign" that both their parents are getting worse, here together they would want their father to be DNR/DNI, keep him comfortable based on his aspiration stop heparin drip, stop medications that would not keep him comfortable okay for antibiotics for now and for Diflucan for possible thrush will work to get patient and his in the same room Review of Systems Review of Systems: Unobtainable due to cognitive status (confused) Physical Exam Constitutional: well developed, + thin and + frail appearing; no acute distress ENMT: Throat: + posterior oropharynx abnormality (secretions, gurgling, cannot protect airway) Neck: trachea midline, no thyromegaly Respiratory: normal respiratory effort and + cough; no respiratory distress Auscultation: + rhonchi; no crackles, no rales and no wheezes Cardiovascular: Rate/Rhythm: regular rate and + irregularly irregular Heart Sounds: normal S1 and normal S2; no murmur Vessels: no JVD Extremities: normal capillary refill; no edema Gastrointestinal (Abdomen): normal bowel sounds, soft, nontender, no hepatosplenomegaly Musculoskeletal: no cyanosis or clubbing, extremities motor strength 5/5 Skin: no rashes, warm and dry Neurologic: patellar DTR's 2+ bilat, sensation intact and PERRL, EOMI, accommodation nl, no face palsy, no dysarthria Psychiatric: Orientation: alert, oriented to person and cooperative; + not oriented to place and + not oriented to time Lymphatic: no cervical or axillary lymphadenopathy Results & Data Results & Data ([facility]) Vital Signs (Past 12 Hours) Vital Signs Temp Pulse Pulse Resp BP BP BP 06/11/20 12:31 87 138/92 06/11/20 11:28 37.4 C 86 18 138/92 06/11/20 08:44 80 182/99 H 06/11/20 07:39 85 06/11/20 07:16 37.2 C 84 16 175/92 H 06/11/20 04:05 99 H 182/99 H 06/11/20 04:01 36.1 C L 99 H 22 182/99 H Pulse Ox 06/11/20 12:31 06/11/20 11:28 100 06/11/20 08:44 06/11/20 07:39 06/11/20 07:16 96 06/11/20 04:05 06/11/20 04:01 97 Laboratory Results Laboratory Results - last 24 hr 06/10/20 06/11/20 06/11/20 21:20 06:33 06:41 WBC 17.49 H RBC 4.40 L Hgb 13.6 L Hct 41.4 L MCV 94.1 MCH 30.9 MCHC 32.9 RDW Std Deviation 48.9 H RDW Coeff of Alvarez 14.2 Plt Count 248 MPV 11.5 H Immature Gran % (Auto) 0.6 Neut % (Auto) 86.7 Lymph % (Auto) 6.2 Carlton % (Auto) 6.4 Eos % (Auto) 0.0 Baso % (Auto) 0.1 Neut # (Auto) 15.16 H Lymph # (Auto) 1.09 L [place] # (Auto) 1.12 H Eos # (Auto) 0.00 Baso # (Auto) 0.01 Immature Gran # (Auto) 0.11 H APTT 47.5 H* 60.3 H* PTT Ratio 1.7 2.2 Sodium Potassium Chloride Carbon Dioxide Anion Gap BUN Creatinine Est Cr Clr Drug Dosing Est GFR ( Amer) Est GFR (Non-Af Amer) BUN/Creatinine Ratio Glucose Calcium 06/11/20 06:41 WBC RBC Hgb Hct MCV MCH MCHC RDW Std Deviation RDW Coeff of Alvarez Plt Count MPV Immature Gran % (Auto) Neut % (Auto) Lymph % (Auto) [place] % (Auto) Eos % (Auto) Baso % (Auto) Neut # (Auto) Lymph # (Auto) [place] # (Auto) Eos # (Auto) Baso # (Auto) Immature Gran # (Auto) APTT PTT Ratio Sodium 144 Potassium 4.3 Chloride 113 H Carbon Dioxide 27 Anion Gap 4.0 BUN 37 H Creatinine 1.04 Est Cr Clr Drug Dosing 43.7 Est GFR ( Amer) 73.4 Est GFR (Non-Af Amer) 63.4 BUN/Creatinine Ratio 35.3 H Glucose 169 H Calcium 8.2 L Medications Administered Current Inpatient Medications Sodium Chloride (Nss 1000ml) 1,000 mls @ 80 mls/hr IV .[id number] [facility] Stop: 07/09/20 14:14 Last Admin: 06/11/20 03:36 Dose: 80 mls/hr Documented by: Piperacillin Sod/Tazobactam (Sod 3.375 gm/ Dextrose) 115 mls @ 28.75 mls/hr IV Q8H [facility]; Protocol Stop: 06/18/20 12:59 Last Admin: 06/11/20 12:29 Dose: 28.8 mls/hr Documented by: Metoprolol Tartrate (Metoprolol Tartrate 1 Mg/Ml Vial) 5 mg IV Q4 [facility] Stop: 07/10/20 19:59 Last Admin: 06/11/20 12:31 Dose: 5 mg Documented by: Miscellaneous Information (Piperacill/Tazobac Consult Active) 1 ea N/A UD PRN PRN Reason: Consult Stop: 07/11/20 07:47 Sodium Chloride (Sodium Chloride 0.9% 10ml Flush) 30 ml IV Q24H [facility] Stop: 06/12/20 21:01 Last Admin: 06/10/20 21:20 Dose: 30 ml Documented by: PG Care Time/CCT Total # of Minutes Spent Total Time Spent: 40 Total Time Spent with Patient: Total time spent is greater than 50% in coordination of care (as documented) at patient's floor/unit and/or counseling patient: 25 minutes on phone with patient's children 15 minutes on examination, documentation, reviewing chart Coding Level of Care Code 36630 Subseq Hosp Care Lvl 3 Diagnoses Dysphagia R13.10 Delirium R41.0 Aspiration into airway T17.908A COVID-19 U07.1 Hypoxia R09.02 Atrial fibrillation I48.91 Recurrent falls R29.6 Elevated troponin R77.8 DVT prophylaxis Z29.9
[2020-06-11] MEDS: SODIUM CHLORIDE 0.9% 10ML FLUSH IV SCH (21:34)
[2020-06-12] MEDS: METOPROLOL TARTRATE 1 MG/ML VIAL IV SCH ×6 (00:56→20:37)
[2020-06-12] MEDS: PIPERACILLIN/TAZOBACTAM 3.375 GM in DEXTROSE 5% 100 ML IV SCH ×3 (04:45→20:37)
--- NOTE | 2020-06-12 09:40 | Hospitalist Progress Note ---
Date of Service June 12, 2020 Assessment & Plan (1) Dysphagia: failed swallow evaluation terribly on 06/10, aspirated applesauce and ice chip on 06/12 is protecting airway to his own saliva and small sips discussed with family,as dosumented in wifes notem and children want to change him to DNR/DNI would not want trach, PEG they would want him treated for comfort will continue Diflucan IV as he c/o sore throat on 06/10 (2) Delirium: metabolic encephalopathy secondary to Covid infection at baseline he [facility] continues with confusion, disorientation (3) Aspiration into airway: LLL infiltrate lays on his left side a lot, weak cough, cannot protect airway changed to Zosyn IV by previous physician (4) COVID-19: patient is not significantly hypoxic on room air at this time there is no role for dexamethasone, Remdesivir or plasma hold on further treatment with transitioning to comfort (5) Hypoxia: not requiring oxygen, is wearing 2 L for comfort with high saturations no increased work of breathing (6) Atrial fibrillation: New onset Rates in low 100's, start on metoprolol 25mg BID but he cannot take PO now Lopressor 5mg q4 scheduled has had some good rate controlled heparin drip for full anticoagulation stopped he cannot take rate control or anticoagulation reliably by mouth so could not treat afib going forward outside of the hospital, concerns for aspiration have not been aggressively re vetted due to comfort care (7) Elevated troponin: No chest pain or shortness of breath to suggest ACS troponin remains at 1 with a flat trend could be myocarditis from COVID? (8) DVT prophylaxis: stop as family would not want unnecessary discomfort outlook is guarded and demise expected Admission and Anticipated Discharge Date Admission Date: June 08, 2020 Subjective This pt is able to converse with me although confused and confabulating. He does not think he is in the hospital he is aware of his laying next to him. Review of Systems Review of Systems: Unobtainable due to cognitive status Pt is with significant delerium, and ROS can not be reliable Physical Exam Physical Exam: Pt is awake and able to converse although confused cardiac is tachycardiac, zi is heard lungs with rales at both bases abd is soft and non tender, appears non acute ext is without edema neurolgic does follow commands but is easily distracted Results & Data Results & Data ([facility]) Vital Signs (Past 12 Hours) Vital Signs Temp Pulse Pulse Pulse Resp BP BP 06/12/20 08:40 73 179/77 H 06/12/20 06:41 98.1 F 138 H 20 170/90 H 06/12/20 04:45 98.4 F 72 72 22 179/106 H 179/106 H 06/12/20 00:56 92 H 164/102 H 06/12/20 00:29 98.1 F 92 H 20 164/102 H 06/11/20 23:17 94 H Pulse Ox 06/12/20 08:40 06/12/20 06:41 93 06/12/20 04:45 100 06/12/20 00:56 06/12/20 00:29 93 06/11/20 23:17 PG Care Time/CCT Total # of Minutes Spent Total Time Spent with Patient: Total time spent is greater than 50% in coordina tion of care (as documented) at patient's floor/unit and/or counseling patient: Coding Level of Care Code 23546 Subseq Hosp Care Lvl 2 Diagnoses Dysphagia R13.10 Delirium R41.0 Aspiration into airway T17.908A COVID-19 U07.1 Hypoxia R09.02 Atrial fibrillation I48.91 Elevated troponin R77.8 DVT prophylaxis Z29.9
[2020-06-13] MEDS: METOPROLOL TARTRATE 1 MG/ML VIAL IV SCH ×2 (00:29→04:46)
[2020-06-13] MEDS: PIPERACILLIN/TAZOBACTAM 3.375 GM in DEXTROSE 5% 100 ML IV SCH (04:50)
[2020-06-13] MEDS ORDERED: METOPROLOL TARTRATE 1 MG/ML VIAL IV ONE (08:19)
[2020-06-13] MEDS ORDERED: METOPROLOL TARTRATE 1 MG/ML VIAL IV SCH (10:00)
[2020-06-13] MEDS ORDERED: ONDANSETRON INJ 2 MG/ML 2 ML VIAL IV PRN ×2 (11:20→17:47)
[2020-06-13] MEDS ORDERED: LORazepam 0.5 MG/1 ML VIAL IV PRN ×2 (11:20→17:47)
[2020-06-13] MEDS: MoRPHine SULFATE 2 MG/ML CARP IV PRN (12:43)
[2020-06-13] MEDS ORDERED: ONDANSETRON 4 MG OD TAB SL PRN (17:47)
[2020-06-13] MEDS ORDERED: ACETAMINOPHEN 650 MG SUPP PR PRN (17:47)
[2020-06-13] MEDS ORDERED: LORazepam 0.5 MG TAB PO PRN (17:47)
[2020-06-13] MEDS ORDERED: ATROPINE SULFATE 1% OP SOLN 2 ML BTL SL PRN (17:47)
[2020-06-13] MEDS ORDERED: GLYCOPYRROLATE 0.2 MG/ML VIAL IV PRN (17:47)
--- NOTE | 2020-06-13 17:47 | Hospitalist Progress Note ---
Date of Service June 13, 2020 Assessment & Plan (1) Need for comfort care: After discussion with the family they wish to pursue more aggressive comfort care measures discontinuing all treatment medications and only using medications directed to his comfort (2) Dysphagia: failed swallow evaluation terribly on 06/10, aspirated applesauce and ice chip on 06/12 is protecting airway to his own saliva and small sips discussed with family,as dosumented in wifes notem and children want to change him to DNR/DNI would not want trach, PEG they would want him treated for comfort will continue Diflucan IV as he c/o sore throat on 06/10 (3) Delirium: metabolic encephalopathy secondary to Covid infection at baseline [facility] continues with confusion, disorientation (4) Aspiration into airway: LLL infiltrate lays on his left side a lot, weak cough, cannot protect airway Antibiotics discontinued (5) COVID-19: patient is not significantly hypoxic on room air at this time there is no role for dexamethasone, Remdesivir or plasma hold on further treatment with transitioning to comfort (6) Hypoxia: not requiring oxygen, is wearing 2 L for comfort with high saturations no increased work of breathing (7) Atrial fibrillation: he cannot take rate control or anticoagulation reliably by mouth so could not treat afib going forward outside of the hospital, concerns for aspiration have not been aggressively re vetted due to comfort care (8) Elevated troponin: No chest pain or shortness of breath to suggest ACS troponin remains at 1 with a flat trend could be myocarditis from COVID? Most likely is demand ischemia from rapid heart rate Admission and Anticipated Discharge Date Admission Date: June 08, 2020 Subjective Patient is more withdrawn and minimally responsive. I did see the patient shortly after his this morning. He appeared to be comfortable. Review of Systems Review of Systems: Pt needs with significant delerium, and ROS can not be reliable Physical Exam Physical Exam: Pt is able to be awoken lethargic cardiac is tachycardiac, zi is heard lungs with rales at both bases abd is soft and non tender, appears non acute ext is without edema neurologic does follow commands but falls back to sleep easily Results & Data Results & Data ([facility]) Vital Signs (Past 12 Hours) Vital Signs Pulse Pulse BP BP 06/13/20 12:36 173/92 H 06/13/20 08:22 92 H 189/92 H 06/13/20 08:12 92 H 189/92 H PG Care Time/CCT Total # of Minutes Spent Total Time Spent with Patient: Total time spent is greater than 50% in coordination of care (as documented) at patient's floor/unit and/or counseling patient: Coding Level of Care Code 53227 Subseq Hosp Care Lvl 3 Diagnoses Need for comfort care Dysphagia R13.10 Delirium R41.0 Aspiration into airway T17.908A COVID-19 U07.1 Hypoxia R09.02 Atrial fibrillation I48.91 Elevated troponin R77.8
[2020-06-13] MEDS: ATROPINE SULFATE 1% OP SOLN 5 ML BTL SL PRN ×2 (18:56→22:03)
[2020-06-13] MEDS: MoRPHine SULFATE 5 MG/0.25 ML UDP PO PRN ×2 (18:57→22:03)
[2020-06-14] MEDS: MoRPHine SULFATE 2 MG/ML CARP IV PRN ×3 (00:41→21:23)
[2020-06-14] MEDS: ATROPINE SULFATE 1% OP SOLN 5 ML BTL SL PRN ×7 (00:42→21:23)
[2020-06-14] MEDS: MoRPHine SULFATE 5 MG/0.25 ML UDP PO PRN ×5 (03:37→19:59)
[2020-06-14] MEDS: MoRPHine SULFATE 4 MG/ML 1 ML CARP\\VIAL IV PRN ×2 (03:52→14:21)
--- NOTE | 2020-06-14 08:03 | Hospitalist Progress Note ---
Date of Service June 14, 2020 Assessment & Plan (1) Need for comfort care: After discussion with the family 06/13/20, they wished to pursue more aggressive comfort care measures discontinuing all treatment medications and only using medications directed to his comfort (2) Dysphagia: failed swallow evaluation terribly on 06/10, aspirated applesauce and ice chip on 06/12 is protecting airway to his own saliva and small sips discussed with family,as dosumented in wifes notem and children want to change him to DNR/DNI would not want trach, PEG they would want him treated for comfort will continue Diflucan IV as he c/o sore throat on 06/10 (3) Delirium: metabolic encephalopathy secondary to Covid infection at baseline he is independent in personal [facility] at [facility] (4) Aspiration into airway: LLL infiltrate Antibiotics discontinued (5) COVID-19: patient is not significantly hypoxic on room air at this time there is no role for dexamethasone, Remdesivir or plasma hold on further treatment with transitioning to comfort (6) Hypoxia: not requiring oxygen, is wearing 2 L for comfort with high saturations no increased work of breathing (7) Atrial fibrillation: he cannot take rate control or anticoagulation reliably by mouth so could not treat afib going forward outside of the hospital, concerns for aspiration have not been aggressively re vetted due to comfort care (8) Elevated troponin: No chest pain or shortness of breath to suggest ACS troponin remains at 1 with a flat trend could be myocarditis from COVID? Most likely is demand ischemia from rapid hea rt rate Admission and Anticipated Discharge Date Admission Date: June 08, 2020 Subjective Patient is on comfort measures for covid pneumonia, minimally responsive. He appeared to be comfortable. Review of Systems Review of Systems: Unobtainable due to reduced consciousness Physical Exam Physical Exam: Pt is able to be awoken lethargic cardiac is tachycardiac, zi is heard lungs with rales at both bases abd is soft and non tender, appears non acute ext is without edema neurologic no longer follows commands PG Care Time/CCT Total # of Minutes Spent Total Time Spent with Patient: Total time spent is greater than 50% in coordination of care (as documented) at patient's floor/unit and/or counseling patient: Coding Level of Care Code 57290 Subseq Hosp Care Lvl 2 Diagnoses Need for comfort care Dysphagia R13.10 Delirium R41.0 Aspiration into airway T17.908A COVID-19 U07.1 Hypoxia R09.02 Atrial fibrillation I48.91 Elevated troponin R77.8
[2020-06-15] MEDS: MoRPHine SULFATE 5 MG/0.25 ML UDP PO PRN (01:03)
[2020-06-15] MEDS: ATROPINE SULFATE 1% OP SOLN 5 ML BTL SL PRN (01:03)
[2020-06-15] MEDS: MoRPHine SULFATE 4 MG/ML 1 ML CARP\\VIAL IV PRN (01:10)
--- NOTE | 2020-06-15 19:05 | Discharge Summary ---
Date of Service June 15, 2020 Admission HPI Per Admitting Provider Maxwell Woodard is an 89 year old male who lives at [facility] presents to the ER after a fall. History is somewhat limited from the patient due to current confusion. He reports he is here because the staff at [facility] sent him here but is unsure why. He is orientated x3 and aware that his is in the memory unit at [facility] but unable to remember any recent history or information I tell him to consent to blood transfusions. Per [facility]. Mr. Woodard has been progressively worsening ambulatory dysfunction, increased confusion, decreased oral intake for the past 4 days. He has had a number of falls during this time. Fever 101.3 F 4 days ago. He currently has a Covid test pending from the custodial. No shortness of breath, cough, diarrhea, abdominal pain, chest pain, sore throat, chills. Updated and discussed care with his daughter Tim. She confirms history from [facility] in addition to full CODE STATUS. Principal Diagnosis pt at 0648 am 06/15/20 covid pneumonia Discharge Exam pt was not examined due to being pronounced by resident service Discharge Data Allergies Allergy/AdvReac Type Severity Reaction Status Date / Time bacitracin Allergy Mild RASH Verified 06/08/20 13:56 neomycin Allergy Mild RASH Verified 06/08/20 13:56 polymyxin B Allergy Mild RASH Verified 06/08/20 13:56 procaine Allergy Unknown started Verified 06/08/20 13:56 shaking after dose of novocain for hemorrhoidectomy Consultations 06/08/20 15:37 ED Decision to Admit Stat 06/13/20 17:47 Consult Case Management - Discharge Planning Routine Consult Palliative Care Routine Ordered Studies 06/08/20 13:08 CT cervical spine wo con Stat CT head/brain wo con Stat 06/08/20 13:58 CT abd pelvis IV con only Stat CT angio chest PE protocol Stat Hospital Course (1) Need for comfort care: After discussion with the family 06/13/20, they wished to pursue more aggressive comfort care measures discontinuing all treatment medications and only using medications directed to his comfort Pt 06/15/20 at 0648 am (2) Dysphagia: failed swallow evaluation terribly on 06/10, aspirated applesauce and ice chip on 06/12 is protecting airway to his own saliva and small sips discussed with family,as dosumented in wifes notem and children want to change him to DNR/DNI would not want trach, PEG they would want him treated for comfort Diflucan IV as he c/o sore throat on 06/10 (3) Delirium: metabolic encephalopathy secondary to Covid infection at baseline he is independent in personal fpc at [facility] (4) Aspiration into airway: LLL infiltrate Antibiotics discontinued (5) COVID-19: patient is not significantly hypoxic on room air at this time there is no role for dexamethasone, Remdesivir or plasma hold on further treatment with transitioning to comfort (6) Hypoxia: not requiring oxygen, is wearing 2 L for comfort with high saturations no increased work of breathing (7) Atrial fibrillation: he cannot take rate control or anticoagulation reliably by mouth so could not treat afib going forward outside of the hospital, concerns for aspiration have not been aggressively re vetted due to comfort care (8) Elevated troponin: No chest pain or shortness of breath to suggest ACS troponin remains at 1 with a flat trend could be myocarditis from COVID? Most likely is demand ischemia from rapid heart rate Total Time Total Time Spent Total Time Spent (In Minutes): less than 30 minutes to prepare certificate and this document Discharge Plan Discharge Items Patient Disposition: Coding Level of Care Code D/C Day Management <30 mins Diagnoses Need for comfort care Dysphagia R13.10 Delirium R41.0 Aspiration into airway T17.908A COVID-19 U07.1 Hypoxia R09.02 Atrial fibrillation I48.91 Elevated troponin R77.8
== END 2020-06-15 06:52 | disposition expired | DRG 177 ==
LOC: ED 11:35 → SUATTDRO 17:48 → EDINP 17:48 → 3E 21:30 → 2W 06-09 20:23 → 2N 06-10 18:21